=== PATIENT | male | born 1965 | race Hispanic/Latino ===

== ENCOUNTER 2017-07-09 10:39 | Inpatient (IN) | payer OTHER ==
[2017-07-09 11:08] LABS: #Eosinphils 0.3 thou/uL (0.0-0.7); #Lymphocytes 0.8 thou/uL (1.20-3.40); #Monocytes 0.5 thou/uL (0.11-0.59); #Neutrophils 7.5 thou/uL (1.40-6.50); %Basophils 0.5 % (0.0-1.0); %Eosinophils 2.8 % (0.0-10.0); %Lymphocytes 8.4 % (21.0-51.0); %Monocytes 5.2 % (0.0-10.0); %Neutrophils 83.1 % (42.0-75.0); Hemoglobin 11.7 g/dL (14.0-18.0); Mean Corpuscular HGB CONC 32.8 g/dL (32.0-36.0); Mean Corpuscular Hemoglobin 30.4 pg (27.0-31.0); Mean Corpuscular Volume 92.7 fl (80.0-94.0); Mean Platelet Volume 7.6 fL (7.4-10.4); Platelet Count 175 thou/uL (130-400); RBC Distribution Width 13.7 % (11.5-14.5); Red Blood Cell (RBC) Count 3.86 mill/uL (4.70-6.10); White Blood Cell (WBC) Count 9.1 thou/uL (4.8-10.8)
[2017-07-09] MEDS ORDERED: Ketorolac Tromethamine 30 MG/ML VIAL ONE (11:24)
[2017-07-09 11:39] LABS: ALT (SGPT) 16 U/L (8-55); AST (SGOT) 21 U/L (5-34); Albumin 3.5 g/dL (3.5-5.0); Alkaline Phosphatase 68 U/L (40-150); Anion Gap 17 mmol/L (10-20); BUN (Urea Nitrogen) 68 mg/dL (8.9-20.6); Bilirubin, Total 0.5 mg/dL (0.2-1.2); Calc. Creatinine Clearance 0 mL/min (70-130); Calcium 6.7 mg/dL (7.8-10.44); Carbon Dioxide 14 mmol/L (22-29); Chloride 114 mmol/L (98-107); Estimated GFR-MDRD 7; Globulin 3.6 g/dL (2.4-3.5); Glucose 181 mg/dL (70-105); Lipase 75 U/L (8-78); Potassium 5.4 mmol/L (3.5-5.1); Protein, Total 7.1 g/dL (6.0-8.3); Sodium 140 mmol/L (136-145)
--- NOTE | 2017-07-09 12:22 | RAD ---
FRONTAL RADIOGRAPH OF CHEST UPRIGHT AND SUPINE FRONTAL IMAGING OF ABDOMEN AND PELVIS: Date: 07/09/17 COMPARISON: None. HISTORY: Abdominal pain. FINDINGS: Frontal radiograph of chest demonstrates no pneumothorax, pleural fluid, focal consolidation, or alve olar edema. Heart and mediastinal contours are unremarkable. Upright imaging demonstrates no evidence for free intraperitoneal air. The bowel gas pattern appears nonobstructed. Upright imaging demonstrates no air fluid levels. Incompletely imaged postoperative hardware overlies the femoral head on the right. There may be lucency adjacent to the femoral head screw which could reflect loosening. IMPRESSION: Incidental findings as detailed above. No radiographic evidence of acute cardiopulmonary disease, florencia e intraperitoneal air, or small bowel obstruction. POS: [facility]
[2017-07-09 13:28] LABS: Bilirubin Negative (Negative); Blood, Urine Moderate (Negative); Clarity CLEAR (Clear); Glucose, Urine (Dipstick) 250 mg/dL (Negative); Leukocyte Negative (Negative); Nitrite Negative (Negative); Protein, Urine (Dipstick) 300 mg/dL (Neg-Trace); Specific Gravity, Urine 1.019 (1.002-1.036); Urobilinogen 0.2 mg/dL (0.2-1.0)
[2017-07-09 13:31] LABS: Bacteria/HPF None Seen HPF (None Seen); Hyaline Casts/LPF 0-3 HYALINE CAST LPF (0-3 Hyaline); Pathc Cast-AUWi Flag 0.27 (0-2.49); Squamous Epithelial 0-3 HPF (0-3)
[2017-07-09 13:35] LABS: Yeast-AUWi Flag 52.5 (0-25.0)
[2017-07-09 13:47] LABS: Yeast-All Forms None Seen HPF (None Seen)
[2017-07-09 13:48] LABS: Crystals/HPF RARE AMORPH URATES HPF (Negative)
[2017-07-09 15:50] LABS: Cardiac Risk 4.5 (Less than 4.5)
[2017-07-09] MEDS ORDERED: Sodium Chloride 0.9% 1,000 ML IV SCH (16:36)
[2017-07-09] MEDS ORDERED: Dextrose 50% Abboject 50 ML SYRINGE SLOW IVP PRN (16:36)
[2017-07-09] MEDS ORDERED: Labetalol HCl 100 MG/20 ML VIAL SLOW IVP PRN (16:36)
[2017-07-09] MEDS ORDERED: HumaLOG 300 UNITS/3 ML VIAL SC PRN (16:36)
[2017-07-09] MEDS ORDERED: Dextrose 5% in Water 1,000 ML IV PRN (16:36)
--- NOTE | 2017-07-09 16:56 | CT ---
ABDOMEN AND PELVIC CT SCAN WITHOUT IV CONTRAST: History: 51-year-old male with abdominal pain which began this morning radiating to right back. FINDINGS: There is an approximately 0.4 cm diameter nodular area on the highest most slice, image #1 in the rig ht middle lobe region, possibly a small pulmonary nodule. Bilateral pleural effusions, slightly great er on the right side. There is evidence for some mild to moderate right renal upper collecting system dilatation and some dilatation of the right ureter but no evidence for an overt opaque calculus. Thi s could be consistent with recent stone passage. There is some scattered linear fat stranding in the perirenal regions bilaterally, slightly greater on the right side. No evidence for renal calculus. No left sided obstruction. Normal appearing appendix. There is some minimally dilated small bowel wi th some air fluid levels, nonspecific. Possibilities include that of some mild ileus or enteritis or could possibly just be response to significant prior pain. There is a normal appearing appendix. Fat containing left inguinal hernia. Right hip nail. IMPRESSION: Dilatation of the right renal pelvis and ureter without evidence for a definitive calculus. This coul d conceivably represent residual dilatation from recently passed stone. Minimal dilatation of the sma ll bowel with some air and fluid levels, nonspecific. Minimal focal ileus or possibly enteritis or ve ry low grade partial small bowel obstruction or possibly even reaction to pain related to a recently passed stone are all considered possibilities. Normal appearing appendix. Small bilateral pleural eff usions, slightly larger on the right side. 0.4 cm diameter possible pulmonary nodule in the right mid dle lobe seen on the highest image, Image 1 on the axial scan. CODE LN POS: [facility]
[2017-07-09] MEDS: hydrALAZINE 20 MG/ML VIAL SLOW IVP PRN ×2 (17:23→22:10)
[2017-07-09] MEDS ORDERED: Amlodipine 10 MG TAB PO SCH (17:45)
[2017-07-09 17:58] LABS: ALT (SGPT) 14 U/L (8-55); AST (SGOT) 20 U/L (5-34); Albumin 3.2 g/dL (3.5-5.0); Alkaline Phosphatase 61 U/L (40-150); Anion Gap 19 mmol/L (10-20); BUN (Urea Nitrogen) 71 mg/dL (8.9-20.6); Bilirubin, Total 0.5 mg/dL (0.2-1.2); Calc. Creatinine Clearance 0 mL/min (70-130); Calcium 6.5 mg/dL (7.8-10.44); Carbon Dioxide 11 mmol/L (22-29); Chloride 116 mmol/L (98-107); Estimated GFR-MDRD 7; Globulin 3.2 g/dL (2.4-3.5); Glucose 82 mg/dL (70-105); Potassium 6.4 mmol/L (3.5-5.1); Protein, Total 6.4 g/dL (6.0-8.3); Sodium 140 mmol/L (136-145)
[2017-07-09 18:01] VITALS: BMI 37.1
[2017-07-09] MEDS: Heparin 5,000 UNITS/ML VIAL SC SCH ×2 (19:07→20:22)
[2017-07-09] MEDS: Sodium Chloride 0.9% 1,000 ML IV SCH (19:07)
[2017-07-09 19:39] LABS: Creatinine, Urine 62.31 mg/dL (63-166)
[2017-07-09] MEDS: Calcium Carbonate 500 MG ChewTAB PO SCH (20:21)
[2017-07-09] MEDS: Atorvastatin Calcium 40 MG TAB PO SCH (20:21)
[2017-07-09] MEDS: Sodium Bicarbonate Tab 325 MG TAB PO SCH (20:22)
--- NOTE | 2017-07-09 20:35 | CON ---
DATE OF CONSULTATION: 07/09/2017 RENAL MEDICINE HISTORY OF PRESENT ILLNESS: Mr. iSlva is a 51-year-old male, who came in with right-blake ed pain. A CT scan of the abdomen and pelvis was done, which showed some dilatation of the right tuan al pelvis and ureter without evidence of definitive calculus or obstruction. It is possible that, pe r radiologies, that he may have passed a stone recently. However, during the initial evaluation, he was noted to have elevated creatinine of 8.0 mg percent. We are being consulted for his acute kidney injury. REVIEW OF SYSTEMS: Positive for flank pain. No nausea, no vomiting, no diarrhea, no constipation, n o headache, no diplopia, no sore throat, no fever or chills. Appetite and energy level is fair. No hematochezia, no melena, no hematemesis. MEDICATIONS: Lipitor 40 mg tab at bedtime, vitamin D3 1000 international units every day, heparin 50 00 units subcu t.i.d., hydralazine 10 mg IV p.r.n., ketorolac discontinued. HOME MEDICATIONS: Include Toujeo 30 units subcutaneous q.a.m. PAST MEDICAL HISTORY: Type 2 diabetes mellitus, hyperlipidemia, hypertension. PAST SURGICAL HISTORY: Status post right femoral open reduction internal fixation status post left t ibia open reduction internal fixation status post left rotator cuff surgery. ALLERGIES: None. TRAUMA: Status post right femoral fracture status post left tibial fracture. IMMUNIZATIONS: Up to date. HOSPITALIZATIONS: Please see past medical history. SOCIAL HISTORY: The patient is , lives with his , he lives in [place], three children. Edu cation: 11th grade. 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 No alcohol intake. No history of smoki ng. No IV drug abuse. FAMILY HISTORY: No family history of ASRD. PHYSICAL EXAMINATION: VITAL SIGNS: Blood pressure is 203/106 with a heart rate of 62, respiratory rate 16, temperature 98. 3. GENERAL: Noted to be awake, alert, comfortable, not in distress. Patient is morbidly obese. SKIN: Adequate turgor. HEENT: He has pinkish conjunctivae, anicteric sclerae. NECK: No neck mass, no carotid bruits, no JVD. CHEST: No deformities. LUNGS: Clear breath sounds. No wheezing, no crackles. HEART: Normal sinus rhythm. No murmur, no gallops, no rubs. ABDOMEN: Globular, soft, nontender, no masses. EXTREMITIES: Trace edema, no deformities. NEUROLOGIC: Moving all extremities. No tremors or asterixis, no ataxia. LABORATORY: On 07/09/2017, white count 9.1, hemoglobin 11.7. Sodium 140, potassium 5.4, chloride 11 4, carbon dioxide 14, BUN 68, creatinine 8.24, AST 21, ALT 16, albumin is 3.5. Cholesterol is 131, t riglyceride 190, lipase 75. Hemoglobin A1c 5. Lactic acid 1.1. CT scan of the abdomen and pelvis showed dilatation, right renal pelvis and ureter without evidence o f definitive calculus. ASSESSMENT AND PLAN: 1. Acute kidney injury -- consider a possible hemodynamically mediated renal dysfunction. We will d o an acute obstruction, is possible with the stone passing out. The plan is to empirically/gently vo lume repleted. Normal saline at 100 mL per hour. 2. Metabolic acidosis. Start sodium bicarbonate 650 mg p.o. b.i.d. 3. Hypertension. Restart home medications of amlodipine 10 mg tab once daily, Coreg 25 mg tab t.i.d . 4. Type 2 diabetes mellitus. Continue current insulin regimen. There is no indication for any dialytic intervention.
[2017-07-09] MEDS ORDERED: WATER IVPB SCH (21:00)
[2017-07-09] MEDS ORDERED: DEXTROSE 10% IVPB SCH (21:00)
[2017-07-09] MEDS ORDERED: INSULIN REGULAR IVPB SCH (21:00)
[2017-07-09] MEDS ORDERED: Calcium Gluc 4.6 MEQ/10 ML (100 MG/ML) SLOW IVP SCH (21:15)
--- NOTE | 2017-07-09 21:53 | HP-2 ---
CODE STATUS: DNR. PRIMARY CARE PHYSICIAN: Tarun esparza. ATTENDING: Jordon Aguilar M.D. RESIDENT: Darryl Wright DO HISTORIAN: The patient. SPECIALISTS: Former patient of Dr. Guzman, Nephrology and patient of Dr. Geneva Omer, Endocrinology. CHIEF COMPLAINT: Abdominal pain. HISTORY OF PRESENT ILLNESS: The patient woke up earlier this morning, complained of right back and right lower quadrant abdominal pain with associated vomiting. The patient said he vomited 2 times. He said the pain was stabbing in nature and felt like he needed a BM. His most recent bowel movement had been the day prior and he has not noticed any blood or melenic type stools. Because the pain did not resolve, he presented to the emergency room and was given Toradol which resulted in some resolution of the pain. He has a prior history of CKD of unknown stage and has seen both Dr. Guzman and unknown insurance follow up rep at [facility] in the past; however, has seen neither in some time. He has never needed dialysis in the past. PAST MEDICAL HISTORY: Includes hypertension, diabetes type 2, CKD of unknown stage, low vitamin D and low calcium. PAST SURGICAL HISTORY: Includes a right femoral head ORIF. ALLERGIES: No known drug allergies. MEDICATIONS: 1. Aspirin 81 mg daily. 2. Toujeo 30 units subcu q.a.m. 3. Unclear as to the patient's antihypertensive medication. Possibilities include lisinopril/hydrochlorothiazide 20/25 mg daily, Coreg unknown dose, and amlodipine. FAMILY HISTORY: Paternal hypertension, maternal hypertension, ovarian cancer, and diabetes mellitus. SOCIAL HISTORY: Tobacco none. ETOH 1 drink per month. Drugs: None. REVIEW OF SYSTEMS: General: The patient denies fever, chills, changes in appetite, sleep, night sweats. HEENT: No vision changes, eye pain, nasal congestion. Respiratory: Denies any cough, congestion. Cardiovascular: Denies any chest pain or palpitations. Gastrointestinal: Admits to nausea and vomiting x2 with abdominal pain. Denies GI bleeding, constipation, or diarrhea. Genitourinary: Denies incontinence, dysuria. Skin: Denies any rashes or lesions. Musculoskeletal: Denies any pain or tenderness. Neurologic : Denies weakness or numbness. Psych: Denies anxiety or depression. PHYSICAL EXAMINATION: VITAL SIGNS: Blood pressure 167/77, pulse 59, respiratory rate 17, T-max 98.5, pulse oximetry 97% on room air. Current weight 104 kg. GENERAL: The patient is alert and oriented x3, in no apparent distress, morbidly obese. HEENT: PERRLA, EOMI. NECK: Supple without lymphadenopathy. CARDIAC: Regular rate and rhythm without murmur. RESPIRATORY: Normal effort, no retractions, clear to auscultation bilaterally. SKIN: Warm and dry without cyanosis or lesions. ABDOMEN: Soft with bowel sounds in all four quadrants. There is mild right lower quadrant tenderness. No masses or distention. EXTREMITIES: No clubbing or cyanosis. MUSCULOSKELETAL: Tone is normal. NEUROLOGIC: No focal neurological deficits. Cranial nerves II through XII grossly intact. PSYCHIATRIC: Appropriate. LABORATORY DATA: CBC: Hemoglobin 11.7, hematocrit 35.8, white count 9.1, platelets 175. CMP: Sodium 140, potassium 5.4, chloride 114, bicarbonate 14, BUN 68, creatinine 8.24, glucose 181, calcium 6.7, total serum protein 7.1, alkaline phos 3.5, total bilirubin 0.5, AST 21, ALT 16, alkaline phosphatase 68. GFR 7, lipase is 75. UA showed a specific gravity of 1.019, blood moderate , protein 300, leukocyte esterase negative, nitrites negative, ketones negative , glucose 250, rbc's 4-6, wbc's 4-6, bacteria none, rare urate crystals. IMAGING: Abdominal series shows no acute processes, possible right femoral head hardware loosening. ASSESSMENT AND PLAN: This is a 51-year-old male with acute kidney injury, questionable etiology. 1. Acute kidney injury on chronic kidney disease. Given the BUN and creatinine ratio, this is most likely intrinsic in nature. Consult Nephrology. Given intravenous fluids and maintenance dose at maintenance weight. We will monitor CMP later this afternoon and then in the morning. Possible causes include stone. Given the UA, we will get CT stone protocol, also given the white count in the urine culture. The patient's most recent known creatinine was 3.48 and this was 2 years ago. 2. Hypertension. The patient's daughter is going to get his actual medication that he takes so we will have better medication reconciliation. Add labetalol and hydralazine p.r.n. We will restart his home meds with the exception of MO inhibitor until his hyperkalemia resolves. 3. Hyperkalemia. Hold MO inhibitor as above. We will monitor CMP. At this point, does not need medical intervention as he is asymptomatic and he is mildly hyperkalemic. 4. Hypocalcemia. This is most likely secondary to chronic kidney disease. The patient is currently asymptomatic. We will give p.o. Tums and replace vitamin D that has been known to previously be deficient. Check a CMP as above. 5. Anemia. This is most likely chronic anemia secondary to chronic kidney disease. We will check CBC. 6. Non-anion gap metabolic acidemia, most likely secondary to acute kidney injury. We will monitor this level with CMP as above. 7. Asymptomatic bacterial cultures and treat for bacteria as indicated. 8. Diabetes. We will start his home long-acting dosing here using Lantus. Glucose checks a.c. and at bedtime, A1c now. Get a lipid panel and I will start a moderate intensity statin. SSI PRN DISPOSITION: Stable. Likely length of stay 3 days. Symptomatic medication will be provided. History and physical as well as management were discussed with Dr. Jordon Aguilar. DENNIS
[2017-07-10 01:28] LABS: Anion Gap 17 mmol/L (10-20); BUN (Urea Nitrogen) 69 mg/dL (8.9-20.6); Calc. Creatinine Clearance 15 mL/min (70-130); Calcium 6.7 mg/dL (7.8-10.44); Carbon Dioxide 12 mmol/L (22-29); Chloride 114 mmol/L (98-107); Estimated GFR-MDRD 7; Glucose 110 mg/dL (70-105); Potassium 4.5 mmol/L (3.5-5.1); Sodium 138 mmol/L (136-145)
[2017-07-10] MEDS: Sodium Chloride 0.9% 1,000 ML IV SCH ×3 (02:40→23:46)
[2017-07-10 04:51] LABS: #Basophils 0.1 thou/uL (0.0-0.2); #Eosinphils 0.3 thou/uL (0.0-0.7); #Lymphocytes 1.1 thou/uL (1.20-3.40); #Monocytes 0.7 thou/uL (0.11-0.59); #Neutrophils 5.6 thou/uL (1.40-6.50); %Basophils 0.7 % (0.0-1.0); %Eosinophils 3.3 % (0.0-10.0); %Lymphocytes 13.9 % (21.0-51.0); %Monocytes 8.8 % (0.0-10.0); %Neutrophils 73.3 % (42.0-75.0); Hemoglobin 9.5 g/dL (14.0-18.0); Mean Corpuscular HGB CONC 32.9 g/dL (32.0-36.0); Mean Corpuscular Hemoglobin 30.3 pg (27.0-31.0); Mean Platelet Volume 7.8 fL (7.4-10.4); Platelet Count 145 thou/uL (130-400); RBC Distribution Width 13.6 % (11.5-14.5); Red Blood Cell (RBC) Count 3.14 mill/uL (4.70-6.10); White Blood Cell (WBC) Count 7.7 thou/uL (4.8-10.8)
[2017-07-10 05:08] LABS: ALT (SGPT) 11 U/L (8-55); AST (SGOT) 14 U/L (5-34); Alkaline Phosphatase 52 U/L (40-150); Anion Gap 16 mmol/L (10-20); BUN (Urea Nitrogen) 70 mg/dL (8.9-20.6); Bilirubin, Total 0.5 mg/dL (0.2-1.2); Calc. Creatinine Clearance 14 mL/min (70-130); Calcium 6.7 mg/dL (7.8-10.44); Carbon Dioxide 15 mmol/L (22-29); Chloride 115 mmol/L (98-107); Estimated GFR-MDRD 6; Globulin 2.8 g/dL (2.4-3.5); Glucose 85 mg/dL (70-105); Potassium 4.9 mmol/L (3.5-5.1); Protein, Total 5.8 g/dL (6.0-8.3); Sodium 141 mmol/L (136-145)
--- NOTE | 2017-07-10 06:27 | HP ---
CHIEF COMPLAINT: Abdominal pain. HISTORY OF PRESENT ILLNESS: This is a 51-year-old male with past history of hypertension and diabetes who presents with a 1 day history of acute lower abdominal pain that he says is crampy in nature with associated 2 episodes of the emesis this morning. He did not have fever or chills, diarrhea or constipation. The pain kind of wrapped around his right side. REVIEW OF SYSTEMS: Denies any chest pain, shortness of breath, decreased urinary output, rash, numbness, tingling or weakness. All other systems reviewed and are negative. PAST MEDICAL HISTORY: Positive for hypertension and diabetes. PAST SURGICAL HISTORY: He has had 2 leg surgeries. SOCIAL HISTORY: No tobacco, ethanol or drug use. ALLERGIES: No known drug allergies. MEDICATIONS: Norvasc, Coreg and baby aspirin. FAMILY HISTORY: Noncontributory. PHYSICAL EXAMINATION: VITAL SIGNS: Include a temperature of 98.3, pulse 62, blood pressure 203/106, respiratory 16 and O2 sat 98%. GENERAL: No acute distress, resting comfortably in bed, watching the [employer] game with his family at bedside. HEENT: Eyes without icterus or injection. Pinna normal. Nares patent without discharge. Moist mucous membranes. NECK: Trachea midline and mobile. No obvious thyromegaly. CARDIOVASCULAR: Regular rate and rhythm without murmur, gallops or rubs. No peripheral edema. LUNGS: Clear to auscultation bilaterally without wheeze, rales, rhonchi or increased work of breathing. ABDOMEN: Bowel sounds positive. Nontender to palpation of my exam without guarding, rigidity or prominent CVA tenderness. No palpable organomegaly. GENITOURINARY: Deferred. MUSCULOSKELETAL: Without deformity, contracture or obvious joint swelling. NEUROLOGIC: Cranial nerves II-XII intact and symmetric. Motor 5/5 upper and lower extremities. Sensation intact to light touch throughout. PSYCHIATRIC: Alert and oriented x4. Mood and affect appropriate for current medical condition. LABORATORY DATA: Include a white count of 9.1, hemoglobin 11.2 with MCV of 92.7 and platelet count 175. Chemistry: Sodium 140, potassium 6.4, chloride 116, bicarbonate of 11, gap of 19, BUN 71, creatinine 8.28, calcium 6.5, total cholesterol 131, triglycerides 190, LDL 64, HDL 29 and lipase 75. Urine is 300 protein, 250 glucose, moderate blood and 4-6 wbc's. IMAGING DATA: CT abdomen and pelvis. Impression: There is dilation of the right renal pelvis and ureter without evidence for definitive calculus. This could conceivably represent residual dilatation, recent past stone, minimally dilatation of small bowel with some air fluid levels, nonspecific minimal focal ileus or possibly enteritis or very low-grade partial small-bowel obstruction or possibly even reaction of pain related to recent passed stone are considered possibilities. Normal appearing appendix. Small bilateral pleural effusions... ASSESSMENT AND PLAN: 1. Abdominal pain. This is secondary to presumed recently passed renal stone. We will give opiates p.r.n. for pain control, Zofran p.r.n. nausea and one for symptoms. No evidence of AAA, appendicitis, pancreatitis, or other acute intra-abdominal pathology. 2. Acute kidney injury on history of supposed chronic kidney disease. This is quite severe. We will consult Dr. Dunham for his recommendations. 3. Hyperkalemia. We will likely give calcium, sodium bicarbonate and D50 with insulin. Pending Dr. Dunham's recommendations. 4. Hypertensive emergency. We will restart home medications, Norvasc, Coreg, Lasix, hydralazine 10 mg IV p.r.n. as well as labetalol 20 mg IV. 5. Obesity. We will discuss diet, exercise. 6. Reported diabetes mellitus. We will send A1c and check a lipid panel. 7. Deep venous thrombosis prophylaxis with heparin. 8. Gastrointestinal prophylaxis with diet. MTDD
--- NOTE | 2017-07-10 06:56 | PRG ---
DATE OF SERVICE: 07/10/2017 SUBJECTIVE: Mr. Silva was seen yesterday for his acute kidney injury. He was started on IV volu me repletion. The CAT scan did suggest some mild renal dilatation which could be secondary to a rece ntly passed stone. We are currently hydrating this patient. He was also noted to have had a transie nt hyperkalemia with the potassium 6.4. He was given Kayexalate with improvement of potassium. He w as also initiated on sodium bicarbonate for his metabolic acidosis. This morning he has no new compl aints. He denies any chest pain, shortness of breath, nausea, vomiting or diarrhea. PHYSICAL EXAMINATION: VITAL SIGNS: Blood pressure is 154/68, heart rate 72, respiratory rate 20, temperature is 97.8, puls e ox 95%. GENERAL: Awake, supine, obese, comfortable, not in distress. SKIN: Adequate turgor. HEENT: He has slightly pale conjunctivae, anicteric sclerae. NECK: No neck mass, no carotid bruits, no JVD. CHEST: No deformities. LUNGS: Clear breath sounds. No wheezing, no crackles. HEART: Normal sinus rhythm. No murmur, no gallops or rubs. ABDOMEN: Globular, soft, nontender. No masses. EXTREMITIES: No edema. MEDICATIONS: 07/10/2017 - Reviewed. LABORATORY: 07/10/2017 - Sodium 141, potassium 4.9, chloride 115, carbon dioxide 15, BUN 70, creatin ine 8.75, glucose 85, calcium is 6.7. AST 14, ALT is 11, albumin 3. White count 7.7, hemoglobin 9.5 . ASSESSMENT AND PLAN: 1. Acute kidney injury -- I did review the urinalysis. There is proteinuria. It is possible that t his patient may have underlying chronic renal failure from diabetic nephropathy. Continue gentle vol ume hydration. The patient is not clinically uremic. I would still attempt to hydrate this patient. Hopefully, there will be some equilibration or even improvement of the renal function with gentle v olume repletion. 2. Anemia. Hemoglobin slightly lower at 9.5 from 11.7. This may be a reflection of some dilution p rocess from his current IV hydration. 3. Metabolic acidosis, started on sodium bicarbonate 650 mg p.o. t.i.d. 4. Hyperkalemia, resolved. 5.? Renal stone - suggested by dilated renal pelvis, but no evidence of any stone in the imaging. Ov erall, prognosis remains guarded. 6. Hypertension. Continue current blood pressure meds. We will recheck basic metabolic panel and CBC in a.m.
[2017-07-10] MEDS ORDERED: Amlodipine 10 MG TAB PO SCH (07:00)
[2017-07-10] MEDS: Carvedilol 25 MG TAB PO SCH ×2 (08:54→18:01)
[2017-07-10] MEDS: Calcium Carbonate 500 MG ChewTAB PO SCH ×2 (08:55→21:09)
[2017-07-10] MEDS: Heparin 5,000 UNITS/ML VIAL SC SCH ×3 (08:56→21:10)
[2017-07-10] MEDS: Sodium Bicarbonate Tab 325 MG TAB PO SCH ×3 (08:57→21:10)
[2017-07-10] MEDS: Acetaminophen 325 MG TAB PO PRN (08:58)
--- NOTE | 2017-07-10 08:58 | PDOC.FM ---
- Subjective Subjective: No acute events overnight. Pt states his abdominal/flank pain has improved. Denies CP, SOB, NVD. Does reports sensation of abdominal bloating/gas pains and constipation. Per pt, urinated twice last night. - Objective Vital Signs & Weight: Vital Signs (12 hours) Temp Pulse Resp BP BP Pulse Ox 07/10/17 06:51 73 136/65 07/10/17 02:45 97.8 F 72 20 154/68 H 95 07/09/17 23:30 98 F 82 20 145/71 H 95 07/09/17 22:10 68 214/102 H 07/09/17 21:30 98.4 F 71 20 201/95 H 96 Weight Weight 101.151 kg I&O: 07/09/17 07/10/17 07/11/17 06:59 06:59 06:59 Intake Total 1989 Output Total 250 Balance 1740 Result Diagrams: 07/10/17 04:32 07/10/17 04:32 <Reji Pollock - Last Filed: 07/10/17 08:56> - Objective Vital Signs & Weight: Vital Signs (12 hours) Temp Pulse Pulse Pulse Resp BP BP 07/10/17 12:12 68 71 161/77 H 07/10/17 12:10 98.1 F 66 18 07/10/17 08:56 99.0 F 73 16 07/10/17 06:51 73 136/65 07/10/17 02:45 97.8 F 72 20 BP BP Pulse Ox Pulse Ox 07/10/17 12:12 139/62 96 07/10/17 12:10 161/77 H 96 07/10/17 08:56 95 07/10/17 06:51 07/10/17 02:45 154/68 H 95 Weight Weight 101.151 kg I&O: 07/09/17 07/10/17 07/11/17 06:59 06:59 06:59 Intake Total 1989 Output Total 250 Balance 1740 Result Diagrams: 07/10/17 04:32 07/10/17 04:32 <Andreea Amezcua - Last Filed: 07/10/17 13:46> Phys Exam - Physical Examination Constitutional: NAD HEENT: PERRLA, moist MMs, sclera anicteric Respiratory: no wheezing, no rales, no rhonchi, clear to auscultation bilateral Cardiovascular: RRR, no significant murmur, no rub Gastrointestinal: soft, non-tender, no distention, positive bowel sounds Musculoskeletal: no edema, pulses present no CVA tenderness Neurological: non-focal, moves all 4 limbs Psychiatric: normal affect <Reji Pollock - Last Filed: 07/10/17 08:56> Dx/Plan (1) Acute kidney injury Code(s): N17.9 - ACUTE KIDNEY FAILURE, UNSPECIFIED Status: Acute (2) Obstructive uropathy Code(s): N13.9 - OBSTRUCTIVE AND REFLUX UROPATHY, UNSPECIFIED Status: Acute (3) Hypertension Code(s): I10 - ESSENTIAL (PRIMARY) HYPERTENSION Status: Acute (4) Diabetes Code(s): E11.9 - TYPE 2 DIABETES MELLITUS WITHOUT COMPLICATIONS Status: Acute (5) Metabolic acidosis Code(s): E87.2 - ACIDOSIS Status: Acute (6) Anemia Code(s): D64.9 - ANEMIA, UNSPECIFIED Status: Acute - Plan Plan: YANE on CKD: nephro consulted, appreciate recs pt is on gentle IV fluid hydration @ 100mls/hr per nephro recs monitor UOP will trend cbc and bmp in am 2/2 low Hgb and elevated creatinine hyperkalemia resolved rec home meds, continue home meds for HTN lantus for DM + ISS anemia possibly 2/2 dilution, will trend <Reji Pollock - Last Filed: 07/10/17 08:56> Attending Addendum - Attending Addendum I personally evaluated the patient and discussed the management with Dr. Pollock I agree with the History, Examination, Assessment and Plan documented above with any addition or exceptions noted below- Patient without complaints; denies any CP or SOB. Afebrile VSS. A/P: 1) YANE- appreciate nephrology assistance; continue gentle hydration and sodium bicarbonate, 2) DM- well controlled; continue current meds. 3) HTN- adjust meds as needed. <Andreea Amezcua - Last Filed: 07/10/17 13:46>
[2017-07-10] MEDS ORDERED: FLU VACC QS2017-18 36 mo. & older 0.5 ML SYRINGE IM ONE (09:00)
[2017-07-10] MEDS ORDERED: Epoetin (ESRD) 20,000 UNITS/ML SC SCH (09:00)
[2017-07-10] MEDS: Insulin Detemir 100 UNITS/ML 30 UNITS in Admixture Fee 1 EACH SC SCH (09:05)
--- NOTE | 2017-07-10 17:47 | EKG ---
Test Reason : Blood Pressure : / mmHG Vent. Rate : 069 BPM Atrial Rate : 069 BPM P-R Int : 200 ms QRS Dur : 092 ms QT Int : 456 ms P-R-T Axes : 048 088 031 degrees QTc Int : 488 ms Normal sinus rhythm Prolonged QT Abnormal ECG When compared with ECG of 04-JUL-2001 12:34, QT has lengthened Confirmed by ERIKA CARLISLE, SFabiola ([id number]) on 07/10/2017 5:47:07 PM Referred By: BALJINDER Confirmed By:DR. Esme JAMES MD
[2017-07-10] MEDS: Atorvastatin Calcium 40 MG TAB PO SCH (21:09)
[2017-07-11 05:23] LABS: #Eosinphils 0.3 thou/uL (0.0-0.7); #Lymphocytes 1.3 thou/uL (1.20-3.40); #Monocytes 0.8 thou/uL (0.11-0.59); #Neutrophils 4.9 thou/uL (1.40-6.50); %Basophils 0.6 % (0.0-1.0); %Eosinophils 3.6 % (0.0-10.0); %Lymphocytes 17.7 % (21.0-51.0); %Monocytes 10.6 % (0.0-10.0); %Neutrophils 67.5 % (42.0-75.0); Hemoglobin 9.3 g/dL (14.0-18.0); Mean Corpuscular Hemoglobin 30.4 pg (27.0-31.0); Mean Corpuscular Volume 92.2 fl (80.0-94.0); Platelet Count 135 thou/uL (130-400); RBC Distribution Width 13.5 % (11.5-14.5); Red Blood Cell (RBC) Count 3.05 mill/uL (4.70-6.10); White Blood Cell (WBC) Count 7.3 thou/uL (4.8-10.8)
[2017-07-11 05:40] LABS: Anion Gap 16 mmol/L (10-20); BUN (Urea Nitrogen) 68 mg/dL (8.9-20.6); Calc. Creatinine Clearance 14 mL/min (70-130); Calcium 6.8 mg/dL (7.8-10.44); Carbon Dioxide 15 mmol/L (22-29); Chloride 114 mmol/L (98-107); Estimated GFR-MDRD 6; Glucose 62 mg/dL (70-105); Potassium 5.3 mmol/L (3.5-5.1); Sodium 140 mmol/L (136-145)
[2017-07-11] MEDS ORDERED: Heparin 10,000 UNITS/ 10 ML VIAL ONE (09:00)
--- NOTE | 2017-07-11 09:02 | PDOC.FM ---
- Subjective Subjective: Pt reports he is feeling fine. Tolerating po, no nvdc, cp, sob, suprapubic pain. States he passed urine this am, unknown quantity. Spoke with pt regarding worsening kidney function and after speaking to nephrology this AM the plan will be to have a cath placed by surgery and begin dialysis. - Objective Vital Signs & Weight: Vital Signs (12 hours) Temp Pulse Resp BP Pulse Ox 07/11/17 06:04 70 16 175/81 H 07/11/17 04:00 98.0 F 69 18 183/89 H 96 07/11/17 00:00 99.0 F 72 20 163/77 H 94 L 07/10/17 21:05 98.9 F 68 16 165/85 H 94 L Weight Weight 106.005 kg I&O: 07/10/17 07/11/17 07/12/17 06:59 06:59 06:59 Intake Total 1989 3213 Output Total 250 1200 Balance 1740 2012 Result Diagrams: 07/11/17 04:54 07/11/17 04:54 <Reji Pollock - Last Filed: 07/11/17 08:58> - Objective Vital Signs & Weight: Vital Signs (12 hours) Temp Pulse Resp BP Pulse Ox 07/11/17 08:00 99.0 F 69 18 171/81 H 95 07/11/17 06:04 70 16 175/81 H 07/11/17 04:00 98.0 F 69 18 183/89 H 96 07/11/17 00:00 99.0 F 72 20 163/77 H 94 L Weight Weight 106.005 kg I&O: 07/10/17 07/11/17 07/12/17 06:59 06:59 06:59 Intake Total 1989 3213 Output Total 250 1200 Balance 1740 2012 Result Diagrams: 07/11/17 04:54 07/11/17 04:54 <Andreea Amezcua - Last Filed: 07/11/17 11:34> Phys Exam - Physical Examination Constitutional: NAD HEENT: PERRLA, moist MMs, sclera anicteric Respiratory: no wheezing, no rales, no rhonchi, clear to auscultation bilateral Cardiovascular: RRR, no significant murmur, no rub distant heart sounds Gastrointestinal: soft, non-tender, no distention, positive bowel sounds Musculoskeletal: pulses present, edema present (trace) Neurological: non-focal Lymphatic: no nodes Skin: no rash <Reji Pollock - Last Filed: 07/11/17 08:58> Dx/Plan (1) Acute kidney injury Code(s): N17.9 - ACUTE KIDNEY FAILURE, UNSPECIFIED Status: Acute (2) Obstructive uropathy Code(s): N13.9 - OBSTRUCTIVE AND REFLUX UROPATHY, UNSPECIFIED Status: Suspected (3) Hypertension Code(s): I10 - ESSENTIAL (PRIMARY) HYPERTENSION Status: Acute (4) Diabetes Code(s): E11.9 - TYPE 2 DIABETES MELLITUS WITHOUT COMPLICATIONS Status: Acute (5) Metabolic acidosis Code(s): E87.2 - ACIDOSIS Status: Resolved (6) Anemia Code(s): D64.9 - ANEMIA, UNSPECIFIED Status: Acute - Plan Plan: ARF: in context of worsening creatinine/renal function we will plan for dialysis per nephrology recommendations, pt to have cath placed by surgery who has been consulted Elevated bp: UOP has been minimal and pt has gained approx 5 kg in last day, likely 2/2 volume overload, plan for dialysis today, continue current BP meds, will monitor DM: continue current medications, glucose well controlled Met acidosis has resolved, AG is 11 Anemia: decrease in hgb, hct, wbc, and platelets, this is likely dilutional, repeat AM cbc, will trend <Reji Pollock - Last Filed: 07/11/17 08:58> Attending Addendum - Attending Addendum I personally evaluated the patient and discussed the management with Dr. Pollock I agree with the History, Examination, Assessment and Plan documented above with any addition or exceptions noted below- Patient without complaints. Denies any SOB, N/V, or abdominal pain. Afebrile VSS A/P: 1) Acute on chronic kidney disease- no improvement with hydration; plans as per nephrology to initiate HD. Plan for dialysis catheter placement today. 2) DM- well controlled; continue current meds. 3) HTN- not well controlled; plan to adjust meds as needed. <Andreea Amezcua - Last Filed: 07/11/17 11:34>
[2017-07-11] MEDS: Carvedilol 25 MG TAB PO SCH ×2 (09:07→16:24)
[2017-07-11] MEDS: Calcium Carbonate 500 MG ChewTAB PO SCH ×3 (09:08→22:48)
--- NOTE | 2017-07-11 09:08 | PRG ---
DATE OF SERVICE: 07/11/2017 SUBJECTIVE: Mr. Silva was admitted for an acute kidney injury on top of his chronic renal failur e. Initially we thought that he had some obstructive uropathy. CT scan did not show any stones, but some mildly dilated renal pelvis with no overt obstruction per se. He was also empirically given vo lume repletion. However, in the last 24-48 hours renal function has worsened. He denies any complai nts today. Denies any chest pain, shortness of breath. PHYSICAL EXAMINATION: VITAL SIGNS: Blood pressure is 175/81, heart rate 69, respiratory rate 18, temperature 98, pulse ox 96%. GENERAL: Awake, alert, comfortable, sitting, not in distress, obese. SKIN: Adequate turgor. HEENT: He has slightly pale conjunctivae, anicteric sclerae. NECK: No neck mass, no carotid bruits, no JVD. CHEST: No deformities. LUNGS: Clear breath sounds. No wheezing, no crackles. HEART: Normal sinus rhythm. No murmur, no gallops or rubs. ABDOMEN: Globular, soft, nontender. No masses. EXTREMITIES: No edema, no deformities. MEDICATIONS: 07/11/2017 - Reviewed. LABORATORY: 07/11/2017 - White count 7.2, hemoglobin 9.3. Sodium 140, potassium 5.3, chloride 114, carbon dioxide 15, BUN 68, creatinine 9.37, glucose 62, calcium 6.8, phosphorus is 6.0. ASSESSMENT AND PLAN: 1. Chronic renal failure, unimproved renal function. Consider initiating dialysis. I had a long di scussion with the patient about initiating dialysis, he has agreed with dialysis. We will plan to do one hour hemodialysis once the dialysis access is placed. 2. Anemia, currently on weekly Epogen. 3. Hyperphosphatemia/hypocalcemia - start PhosLo 667 mg 1 tab t.i.d. with meals. Overall, prognosis remains guarded.
[2017-07-11] MEDS: Sodium Bicarbonate Tab 325 MG TAB PO SCH ×4 (09:09→22:48)
[2017-07-11] MEDS: Heparin 5,000 UNITS/ML VIAL SC SCH ×3 (09:09→20:23)
[2017-07-11] MEDS: Insulin Detemir 100 UNITS/ML 30 UNITS in Admixture Fee 1 EACH SC SCH (09:10)
[2017-07-11] MEDS: Sodium Chloride 0.9% 1,000 ML IV SCH (09:48)
[2017-07-11] MEDS ORDERED: CEFAZOLIN/Water 2 GM/20 ML SYRINGE SLOW IVP SCH ×2 (10:00→15:49)
--- NOTE | 2017-07-11 11:06 | ULT ---
BILATERAL UPPER EXTREMITY VENOUS DUPLEX SONOGRAM FOR VEIN MAPPING: History: Renal disease. FINDINGS: Each internal jugular and subclavian vein were evaluated along with each axillary, brachial, cephalic and basilic vein. Good color and spectral doppler flow are present. Measurements are as follows: RIGHT UPPER EXTREMITY BRACHIAL ARTERY: 5 mm RADIAL ARTERY: 2 mm ULNAR ARTERY: 2 mm CEPHALIC VEIN Proximal Arm: 2 mm Mid Arm: 2 mm Distal Arm: 2 mm Antecubital Fossa: 2 mm Proximal Forearm: 2 mm Mid Forearm: 1 mm Distal Forearm: 1 mm BASILIC VEIN Proximal Arm: 4 mm Mid Arm: 4 mm Distal Arm: 4 mm Antecubital Fossa: 3 mm Proximal Forearm: 1 mm Mid Forearm: 2 mm Distal Forearm: 2 mm LEFT UPPER EXTREMITY BRACHIAL ARTERY: 4 mm RADIAL ARTERY: 3 mm ULNAR ARTERY: 2 mm CEPHALIC VEIN Proximal Arm: 3 mm Mid Arm: 3 mm Distal Arm: 3 mm Antecubital Fossa: 3 mm Proximal Forearm: 3 mm Mid Forearm: 2 mm Distal Forearm: 2 mm BASILIC VEIN Proximal Arm: 3 mm Mid Arm: 3 mm Distal Arm: 3 mm Antecubital Fossa: 2 mm Proximal Forearm: 2 mm Mid Forearm: 1 mm Distal Forearm: 2 mm IMPRESSION: Patent vascular structures within each upper extremity with measurements as detailed above. POS: [facility]
[2017-07-11] MEDS ORDERED: PROPOFOL 200 MG/20 ML VIAL ONE (11:13)
[2017-07-11] MEDS ORDERED: CEFAZOLIN/Water 2 GM/20 ML SYRINGE ONE (11:33)
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
[2017-07-11] MEDS ORDERED: Sodium Chloride 0.9% 20 ML ONE (12:35)
[2017-07-11] MEDS ORDERED: Bupivacaine/Epinephrine 0.25% 30 ML VIAL ONE (12:35)
[2017-07-11] MEDS ORDERED: Fentanyl 100 MCG/2 ML VIAL ONE (13:23)
[2017-07-11] MEDS ORDERED: Midazolam HCl 2 mg/2 ml Vial ONE (13:23)
[2017-07-11] MEDS ORDERED: Promethazine HCl 25 MG/ML VIAL SLOW IVP PRN (14:28)
[2017-07-11] MEDS ORDERED: Ondansetron HCl/PF 4 MG/2 ML Vial IVP PRN (14:28)
[2017-07-11] MEDS ORDERED: Promethazine HCl 25 MG/ML VIAL IM PRN (14:28)
[2017-07-11] MEDS: Calcium Acetate 667 MG CAP PO SCH ×2 (14:29→16:23)
--- NOTE | 2017-07-11 15:26 | RAD ---
CHEST 1 VIEW: HISTORY: Central line placement. COMPARISON: Abdomen radiograph 07/09/17. FINDINGS: Left IJ central venous catheter tip sits at the right atrium. The IJ dialysis catheter tip is at the right atrium. No pneumothorax. IMPRESSION: No pneumothorax post line placement. POS: [facility]
[2017-07-11] MEDS: Acetaminophen 325 MG TAB PO PRN (16:05)
[2017-07-11 17:59] LABS: HBSAg Index 0.18 S/CO (0-0.99); Hep B Core Total Ab Non-Reactive (NonReactive); Hep B Core Total Index 0.07 S/CO (0-0.79); Hep B Surf Ag Non-Reactive S/CO (NonReactive)
[2017-07-11 18:00] LABS: HBSAB Concentration 0.16 mIU/mL; Hep B Surf AB Non-Reactive (NonReactive); Hep C IgG Ab Non-Reactive (NonReactive); Hep C Index 0.24 S/CO (0-0.79)
--- NOTE | 2017-07-11 18:04 | OP ---
DATE OF OPERATION: 07/11/2017 PREOPERATIVE DIAGNOSES: End-stage renal disease, hyperkalemia, diabetes mellitus, hypertension, hype rtensive nephropathy, poor IV access. POSTOPERATIVE DIAGNOSES: End-stage renal disease, hyperkalemia, diabetes mellitus, hypertension, hyp ertensive nephropathy, poor IV access, prior history of right proximal forearm IV and despite chronic kidney disease. PROCEDURE PERFORMED: Right IJ cuffed tunneled angiodynamics precurved hemodialysis catheter placemen t and left IJ central line triple lumen catheter placement. Ultrasound fluoroscopy used for placemen t. SURGEON: Dr. David Maxwell. ANESTHESIA: Intravenous sedation and local 0.25% Marcaine with epinephrine, 30 mL, mixed with 2% Xyl ocaine, 10 mL PROCEDURE IN DETAIL: The patient was taken to the operating room where under intravenous sedation, n leonila and chest were prepared with ChloraPrep, draped in routine fashion. Local anesthetic infiltrated into skin and subcutaneous tissue about the operative site. Using ultrasound guidance, the right an d left internal jugular veins cannulated with a trocar catheter. J-wire was threaded. Trocar cathet er was removed. Skin incised and enlarged sharply on both sides and stab incision made in the right chest to the flank, hemodialysis catheter exit site. Using the tunneling device, the precurved angio dynamics cuffed tunnel hemodialysis catheter placed between the two incisions, placing the fabric cuf f beneath the skin exit site over the right chest and catheter secured with 2 interrupted sutures of 3-0 nylon and a Biopatch applied. Smaller and medium sized dilators placed over the J-wire into the internal jugular vein and removed. Dilator and pull-away sheath placed over the J-wire in superior v ying cava and dilator and J-wire removed. Catheter placed with a pull-away sheath. The pull-away she ath removed. Platysma approximated with 4-0 Monocryl, skin with subdermal 4-0 Monocryl and DermaGlue applied. Each port aspirated blood and flushed with saline solution and heparinized saline solution 1000 units heparin per mL indicated volume of the port. Seldinger technique used to place left IJ triple lumen catheter, securing it with 3-0 nylon suture an d each port aspirated blood and flushed with saline solution, and Biopatch sterile dressing applied. Final fluoroscopic images revealed both catheters to be in good position. The patient tolerated the procedure well without complications.
[2017-07-11] MEDS: Atorvastatin Calcium 40 MG TAB PO SCH ×2 (22:34→22:48)
--- NOTE | 2017-07-11 23:34 | ADD-PRG ---
ADDENDUM: 07/11/2017 I spoke with Mr. Silva regarding the planned procedure tomorrow. It was explained to him the options of hemodialysis and peritoneal dialysis. The patient is interested in pursuing peritoneal dialysis. I did explain to him that it would be also advantageous for him to have a backup AV fistula. He has agreed to have an AV fistula placed. I also explained to the patient as well to the , that they can decline any placement of AV fistula if he is not interested or even PD catheter. I did explain also that he eventually will need a renal transplant which he seems to be very open about it. They now wished to proceed to have the PD catheter, AV fistula placed tomorrow with Dr. Maxwell. DENNIS
[2017-07-12] MEDS: hydrALAZINE 20 MG/ML VIAL SLOW IVP PRN (00:58)
[2017-07-12] MEDS: Sodium Chloride 0.9% 1,000 ML IV SCH (01:03)
[2017-07-12] MEDS ORDERED: Lidocaine 1% w/Epinephrine 1:100K 20 ML VIAL FS SCH (02:45)
--- NOTE | 2017-07-12 03:07 | PDOC.EVN ---
Event Note - Event Note Event Note: Called for oozing from Left IJ CVC site. Upon ooze noted from insertion site. Skin cleaned. 4 cc lido 1% with epi used. Pursestring placed with 0 silk. Good resultant hemostasis immediately after. Dressing applied per nursing.
[2017-07-12] MEDS ORDERED: Ondansetron ODT 8 MG TAB SL PRN (03:19)
[2017-07-12] MEDS ORDERED: Ondansetron ODT 4 MG TAB PO PRN (03:20)
[2017-07-12 06:04] LABS: #Eosinphils 0.2 thou/uL (0.0-0.7); #Lymphocytes 0.8 thou/uL (1.20-3.40); #Monocytes 0.7 thou/uL (0.11-0.59); #Neutrophils 5.5 thou/uL (1.40-6.50); %Basophils 0.6 % (0.0-1.0); %Eosinophils 3.2 % (0.0-10.0); %Lymphocytes 10.6 % (21.0-51.0); %Monocytes 9.6 % (0.0-10.0); %Neutrophils 75.9 % (42.0-75.0); Hemoglobin 8.9 g/dL (14.0-18.0); Mean Corpuscular HGB CONC 34.2 g/dL (32.0-36.0); Mean Corpuscular Volume 90.7 fl (80.0-94.0); Mean Platelet Volume 8.1 fL (7.4-10.4); Platelet Count 145 thou/uL (130-400); RBC Distribution Width 13.5 % (11.5-14.5); Red Blood Cell (RBC) Count 2.87 mill/uL (4.70-6.10); White Blood Cell (WBC) Count 7.3 thou/uL (4.8-10.8)
[2017-07-12] MEDS: Carvedilol 25 MG TAB PO SCH ×2 (06:19→16:22)
[2017-07-12 06:34] LABS: Anion Gap 13 mmol/L (10-20); BUN (Urea Nitrogen) 56 mg/dL (8.9-20.6); Calc. Creatinine Clearance 16 mL/min (70-130); Calcium 7.2 mg/dL (7.8-10.44); Carbon Dioxide 19 mmol/L (22-29); Chloride 111 mmol/L (98-107); Estimated GFR-MDRD 7; Glucose 111 mg/dL (70-105); Potassium 4.3 mmol/L (3.5-5.1); Sodium 139 mmol/L (136-145)
[2017-07-12] MEDS ORDERED: CEFAZOLIN/Water 2 GM/20 ML SYRINGE ONE (07:47)
[2017-07-12] MEDS ORDERED: Fentanyl 100 MCG/2 ML VIAL ONE (08:58)
[2017-07-12] MEDS ORDERED: Midazolam HCl 2 mg/2 ml Vial ONE (08:58)
[2017-07-12] MEDS ORDERED: Protamine Sulfate 50 MG/5 ML VIAL ONE (09:02)
[2017-07-12] MEDS ORDERED: Bupivacaine/Epinephrine 0.25% 30 ML VIAL ONE ×2 (09:02→09:29)
[2017-07-12] MEDS ORDERED: Heparin 10,000 UNITS/1 ML VIAL ONE (09:02)
[2017-07-12] MEDS ORDERED: Heparin 5,000 UNITS/ML VIAL ONE (09:02)
[2017-07-12] MEDS ORDERED: SUGAMMADEX SODIUM 500 MG/5 ML VIAL ONE (11:13)
[2017-07-12] MEDS ORDERED: Amlodipine 10 MG TAB PO SCH (11:45)
[2017-07-12] MEDS: Calcium Acetate 667 MG CAP PO SCH ×2 (11:59→16:22)
[2017-07-12] MEDS: Calcium Carbonate 500 MG ChewTAB PO SCH ×2 (11:59→20:11)
[2017-07-12] MEDS: Heparin 5,000 UNITS/ML VIAL SC SCH ×3 (11:59→20:12)
[2017-07-12] MEDS: Insulin Detemir 100 UNITS/ML 30 UNITS in Admixture Fee 1 EACH SC SCH (12:00)
[2017-07-12] MEDS: Sodium Bicarbonate Tab 325 MG TAB PO SCH ×3 (12:00→21:30)
--- NOTE | 2017-07-12 13:34 | PDOC.FM ---
- Subjective Subjective: Patient seen in dialysis. Denies any complaints. Denies any pain, SOB. - Objective MAR Reviewed: Yes Vital Signs & Weight: Vital Signs (12 hours) Temp Pulse Resp BP BP BP Pulse Ox 07/12/17 12:55 97.8 F 56 L 18 114/60 07/12/17 07:20 98.8 F 73 16 171/77 H 96 07/12/17 04:00 98.6 F 76 20 148/70 H 95 07/12/17 01:46 76 16 174/84 H Weight Weight 104.734 kg I&O: 07/11/17 07/12/17 07/13/17 06:59 06:59 06:59 Intake Total 3213 646 Output Total 1200 1775 Balance 2012 Result Diagrams: 07/12/17 05:32 07/12/17 05:32 Phys Exam - Physical Examination Respiratory: no wheezing, no rales, no rhonchi, clear to auscultation bilateral Cardiovascular: RRR, no significant murmur Gastrointestinal: soft Musculoskeletal: edema present (1+ Lower extremity) Dx/Plan (1) Chronic kidney disease, stage 5 Code(s): N18.5 - CHRONIC KIDNEY DISEASE, STAGE 5 Status: Chronic (2) Hypertension Code(s): I10 - ESSENTIAL (PRIMARY) HYPERTENSION Status: Acute Qualifiers: Hypertension type: essential hypertension Qualified Code(s): I10 - Essential (primary) hypertension (3) Diabetes Code(s): E11.9 - TYPE 2 DIABETES MELLITUS WITHOUT COMPLICATIONS Status: Chronic Qualifiers: Diabetes mellitus type: type 2 Diabetes mellitus complication status: with kidney complications Diabetes mellitus complication detail: with chronic kidney disease Diabetes mellitus intermediate insulin use: with intermediate use Chronic kidney disease stage: on chronic dialysis Qualified Code(s): E11.22 - Type 2 diabetes mellitus with diabetic chronic kidney disease; N18.6 - End stage renal disease; N18.6 - End stage renal disease; N18.6 - End stage renal disease; N18.6 - End stage renal disease; Z79.4 - half-way (current) use of insulin; Z79.4 - terminal operations manager (current) use of insulin; Z79.4 - terminal operations manager (current ) use of insulin; Z79.4 - terminal operations manager (current) use of insulin; Z99.2 - Dependence on renal dialysis; Z99.2 - Dependence on renal dialysis; Z99.2 - Dependence on renal dialysis; Z99.2 - Dependence on renal dialysis (4) Anemia Code(s): D64.9 - ANEMIA, UNSPECIFIED Status: Acute Qualifiers: Anemia type: due to chronic kidney disease Chronic kidney disease stage: on chronic dialysis Qualified Code(s): N18.6 - End stage renal disease; D63.1 - Anemia in chronic kidney disease; D63.1 - Anemia in chronic kidney disease; Z99.2 - Dependence on renal dialysis; Z99.2 - Dependence on renal dialysis; Z99.2 - Dependence on renal dialysis; Z99.2 - Dependence on renal dialysis - Plan Plan: -Had Av fistula and PD catheter placed today by surgery. Currently in dialysis. Continue plans for dialysis as per nephrology. Case management for arrangements for outpatient dialysis. - BP labile; continue to monitor; may improve as fluid removed with dialysis - BG stable; continue current meds.
[2017-07-12] MEDS ORDERED: Heparin 10,000 UNITS/ 10 ML VIAL ONE ×2 (14:01→14:34)
--- NOTE | 2017-07-12 14:04 | OP ---
DATE OF OPERATION: 07/12/2017 PREOPERATIVE DIAGNOSES: End-stage renal disease, obesity, iatrogenic thrombosis right arm cephalic v ein forearm from IV access and blood draws. PROCEDURE: Laparoscopic peritoneal dialysis catheter, double cuffed pigtail, laparoscopic omentopexy (morbid obesity with abundant pericolonic fat and mesentery in the pelvis), left wrist Cassie fistul a. Good quality with radial artery without arteriosclerotic disease, a 3.5 mm coronary dilator parag bosch SURGEON: Dr. David Maxwell ANESTHESIA: General. Local 0.25% Marcaine with epinephrine, 30 mL, mixed with 2% Xylocaine, 10 mL. PROCEDURE: The patient was taken to the operating room where under general anesthesia, abdomen and l eft arm were clipped of hair, prepared with ChloraPrep, draped in routine fashion. Local anesthetic infiltrated about the operative site and the skin and subcutaneous tissues of all incisions. Bilater al subcostal incisions made and pneumoperitoneum to 15 mmHg obtained with the Veress needle, replacin g it with a 5 port. Video laparoscope inserted. Contralateral 5 mm port placed under laparoscopic v isualization. Omentum was abundant and reached into the pelvis. Left paraumbilical and counterincis ion was made with an 11 blade and a 5 port placed to facilitate omentopexy, laparoscopic omentopexy p erformed with 0 Vicryl suture placed with a GraNee needle placing the omentum into the upper abdomen with the transabdominal fixation suture. Once this was completed, the 5 mm port from the counterinci leander was removed and an 8 mm port placed through this incision directed caudally in the subcutaneous tissue, directed into the rectus sheath, visualized laparoscopically, penetrating the abdominal wall and fascia, peritoneum inferiorly/caudally. A cuffed pigtail peritoneal dialysis catheter passed thr ough this port and internal cuff placed in the rectus sheath and the port removed. The planned exit site left lower quadrant, slightly more dependent and caudal and lateral to the counterincision was m essie and using Eli dissector passed through this exit site incision to the counterincision. The p eritoneal dialysis catheter was grasped and pulled out this incision, placed an external cuff beneath the skin. Counterincision was closed by approximating subcutaneous tissues with 4-0 Monocryl, skin with subdermal 4-0 Monocryl. Irrigation connecting device placed on the peritoneal dialysis catheter and it flushed with heparinized saline solution 1000 units heparin per mL, 10 mL. A cap applied. Biopatch and sterile dressings applied. Pneumoperitoneum evacuated. All instruments removed and all skin incisions approximated with interrupted subdermal 4-0 Monocryl and DermaGlue applied. The tiffany ent tolerated the procedure well. Incision was made between the radial and cephalic vein longitudinally at the wrist and carried down t hrough the skin and subcutaneous tissue. Radial artery was of good quality. Cephalic vein was of go od quality. Cephalic vein dissected free and ligated on the hand side with a 3-0 silk tie and divide d and spatulated and interrogated with coronary dilators. I initially divided branch between 4-0 lety k ties and clips, passing coronary dilators from a 2 mm to a 3.5 mm coronary dilator, to their casa l length without obstruction. It was then flushed with heparinized saline solution. The patient giv en 6000 units of heparin intravenously by Anesthesia. Radial artery dissected free, clamped proximal ly and distally and longitudinal arteriotomy made for a 2.5 to 3 cm anastomosis between the side radi al artery and end cephalic vein spatulated cephalic vein accordingly. Continuous suture of 6-0 Prole ne used for the anastomosis. After completion of the anastomosis, vascular clamp was released. Ther e was excellent arterial flow with good Doppler signal throughout cephalic vein fistula. Good hemost asis was noted. The patient given 25 mg intravenously by Anesthesia. Subcutaneous tissues approxima bon with 3-0 Monocryl, skin with subdermal 4-0 Monocryl and DermaGlue applied.
[2017-07-12] MEDS ORDERED: Succinylcholine Chloride 20 MG/ML 10 ml SYRINGE FS ONE (14:34)
[2017-07-12] MEDS ORDERED: Naloxone HCl 0.4 mg/ml Vial ONE (14:34)
[2017-07-12] MEDS ORDERED: Lidocaine 1% PF 5 ML VIAL ONE (14:34)
[2017-07-12] MEDS ORDERED: PROPOFOL 200 MG/20 ML VIAL ONE (14:34)
[2017-07-12] MEDS ORDERED: Glycopyrrolate 0.2 MG/ML 5 ML SYRINGE ONE (14:34)
[2017-07-12] MEDS ORDERED: PHENYLEPHRINE-NS 100 MCG/ML 10 ML SYRINGE ONE (14:34)
[2017-07-12] MEDS ORDERED: Tuberculin PPD 0.1 ML VIAL I-DERMAL SCH (18:00)
--- NOTE | 2017-07-12 18:56 | PRG ---
DATE OF SERVICE: 07/12/2017 SUBJCTIVE: Mr. Silva is a 51-year-old male, who was admitted for acute kidney injury. However renal function on review probably is that he most likely has ESRD. His renal function remain ed improving with slight volume repletion. He is now had a PD catheter, AV fistula placed. We have initiated dialysis. He underwent 2-hour dialysis today without any difficulty. He has no new compla ints. He has no chest pain, shortness of breath. We have placed him on Hep-Lock. OBJECTIVE: VITAL SIGNS: Blood pressure is 173/81, heart rate 63, respiratory rate 18, temperature 97.5, pulse o x 96%. GENERAL: Noted to be awake, supine, comfortable, not in distress, obese. SKIN: Adequate turgor. HEENT: Slightly pale conjunctivae, anicteric sclerae. NECK: No neck mass, no carotid bruits. No JVD. CHEST: No deformities. LUNGS: Clear breath sounds. No wheezing, no crackles. HEART: Normal sinus rhythm. No murmur, no gallops or rubs. ABDOMEN: Globular, soft, nontender, no masses. Positive for PD catheter. EXTREMITIES: Positive for edema, but no deformities MEDICATIONS of 2018 was reviewed. LABORATORY DATA: 07/12/2017, White count is 7.3, hemoglobin 8.9. Sodium 139, potassium 4.3, chlorid e 111, carbon dioxide 19, BUN 56, creatinine 8.04, glucose 111, calcium 7.2. ASSESSMENT AND PLAN: 2. Chronic renal failure/end-stage renal disease - Patient underwent a 2-hour dialysis today. He to lerated said treatment. The plan is to do a 3-hour dialysis tomorrow. 3. Anemia on weekly Epogen. 4. Hypocalcemia/hyperphosphatemia - Patient started on PhosLo and also on calcium supplementation. Calcium is much improved. Overall, the patient is doing well, awaiting dialysis placement.
[2017-07-12] MEDS: Acetaminophen 325 MG TAB PO PRN (20:10)
[2017-07-12] MEDS ORDERED: Carvedilol 25 MG TAB PO SCH (21:00)
[2017-07-12] MEDS ORDERED: Acetaminophen/Codeine 30-300mg Tablet PO PRN (21:24)
[2017-07-12] MEDS: Atorvastatin Calcium 40 MG TAB PO SCH (21:31)
--- NOTE | 2017-07-13 08:42 | PRG ---
DATE OF SERVICE: 07/13/2017 SERVICE: Renal Medicine. SUBJECTIVE: Mr. Silva is a 51-year-old male who was initiated dialysis due to uremic si gns and symptoms. He was also in mild volume overload. He had a PD catheter, AV fistula as well as a cuffed dialysis catheter placed. This is on the third day of his dialysis. My plan is to do a 3-h our hemodialysis with fluid removal with this patient as tolerated. No other complaints. No chest p ain, no shortness of breath. He has some postop abdominal pain, but this is tolerable. OBJECTIVE: VITAL SIGNS: Blood pressure 131/62, heart rate 71, respiratory rate 20, temperature 98.2, pulse ox 9 4%. GENERAL: Awake, alert, supine, comfortable. SKIN: Adequate turgor. HEENT: He has slightly pale conjunctivae, anicteric sclerae. NECK: No neck mass, no carotid bruits, no JVD. CHEST: No deformities. LUNGS: Clear breath sounds. No wheezing or crackles. HEART: Normal sinus rhythm. No murmurs, gallops or rubs. ABDOMEN: Globular, soft, nontender. Positive for PD catheter. EXTREMITIES: No edema. Positive left wrist AV fistula, positive for bruit. MEDICATIONS: Of 07/13/2017 was reviewed. LABORATORY DATA: Of 07/12/2017, white count 7.2, hemoglobin 8.9. Sodium 139, potassium 4.3, chlorid e 111, carbon dioxide 19, BUN 56, creatinine 8.04, calcium 7.2. ASSESSMENT AND PLAN: 1. Chronic renal failure/end-stage renal disease - hemodialysis today for 3 hours. Fluid removal on ly as tolerated. 2. Anemia - continuing weekly Epogen. 3. Hypocalcemia. Currently, patient is on PhosLo as well on calcium tablets. 4. Hyperphosphatemia. The patient has been started on phosphate binders. Awaiting placement. Jacob e with overall management.
[2017-07-13] MEDS: Amlodipine 10 MG TAB PO SCH (08:47)
[2017-07-13] MEDS: Carvedilol 25 MG TAB PO SCH ×2 (08:47→17:51)
[2017-07-13] MEDS: Calcium Acetate 667 MG CAP PO SCH ×3 (08:47→17:51)
[2017-07-13] MEDS: Insulin Detemir 100 UNITS/ML 30 UNITS in Admixture Fee 1 EACH SC SCH (08:48)
[2017-07-13] MEDS: Calcium Carbonate 500 MG ChewTAB PO SCH ×2 (08:48→20:43)
[2017-07-13] MEDS: Heparin 5,000 UNITS/ML VIAL SC SCH ×3 (08:48→20:44)
[2017-07-13] MEDS: Sodium Bicarbonate Tab 325 MG TAB PO SCH ×3 (09:00→20:54)
[2017-07-13 09:59] LABS: #Basophils 0.1 thou/uL (0.0-0.2); #Eosinphils 0.3 thou/uL (0.0-0.7); #Lymphocytes 0.9 thou/uL (1.20-3.40); #Monocytes 0.6 thou/uL (0.11-0.59); #Neutrophils 4.7 thou/uL (1.40-6.50); %Eosinophils 4.7 % (0.0-10.0); %Monocytes 9.7 % (0.0-10.0); %Neutrophils 71.6 % (42.0-75.0); Hemoglobin 8.4 g/dL (14.0-18.0); Mean Corpuscular HGB CONC 32.2 g/dL (32.0-36.0); Mean Corpuscular Hemoglobin 29.3 pg (27.0-31.0); Mean Corpuscular Volume 91.1 fl (80.0-94.0); Platelet Count 149 thou/uL (130-400); RBC Distribution Width 13.6 % (11.5-14.5); Red Blood Cell (RBC) Count 2.86 mill/uL (4.70-6.10); White Blood Cell (WBC) Count 6.5 thou/uL (4.8-10.8)
--- NOTE | 2017-07-13 10:13 | PDOC.FM ---
Addendum entered and electronically signed by Reji Pollock DO 07/13/17 10: 18: Continue coreg and amlodipine for HTN. Procrit for anemia Original Note: - Subjective Subjective: No acute events overnight. Pt tolerated pd placement well. Minor pain surrounding pd placement site, w/o evidence of infection. HD scheduled per nephro. Overall pt doing well and no complaints today. Passing flatus since pd cath placement but no BM. Denies cp, sob, NVDC. - Objective Vital Signs & Weight: Vital Signs (12 hours) Temp Pulse Resp BP Pulse Ox 07/13/17 08:47 71 07/13/17 04:00 98.2 F 71 20 131/62 94 L 07/13/17 00:00 98.9 F 76 20 134/61 91 L Weight Weight 103.561 kg I&O: 07/12/17 07/13/17 07/14/17 06:59 06:59 06:59 Intake Total 646 340 Output Total 1775 2495 Balance -1129 -2155 Result Diagrams: 07/13/17 09:39 07/12/17 05:32 <Reji Pollock - Last Filed: 07/13/17 10:17> - Objective Vital Signs & Weight: Vital Signs (12 hours) Temp Pulse Resp BP Pulse Ox 07/13/17 08:47 71 07/13/17 04:00 98.2 F 71 20 131/62 94 L Weight Weight 103.561 kg I&O: 07/12/17 07/13/17 07/14/17 06:59 06:59 06:59 Intake Total 646 340 Output Total 1775 2495 Balance -1129 -2154 Result Diagrams: 07/13/17 09:39 07/13/17 09:39 <Andreea Amezcua - Last Filed: 07/13/17 12:08> Phys Exam - Physical Examination Constitutional: NAD HEENT: PERRLA, sclera anicteric Neck: no nodes, no JVD Respiratory: no wheezing, no rales, no rhonchi, clear to auscultation bilateral Cardiovascular: RRR, no significant murmur, no rub Gastrointestinal: soft, no distention, positive bowel sounds ttp surrounding PD cath site Musculoskeletal: no edema, pulses present Neurological: non-focal, normal sensation, moves all 4 limbs Psychiatric: normal affect Skin: no rash <Reji Pollock - Last Filed: 07/13/17 10:17> Dx/Plan (1) ESRD (end stage renal disease) on dialysis Code(s): N18.6 - END STAGE RENAL DISEASE; Z99.2 - DEPENDENCE ON RENAL DIALYSIS Status: Acute (2) Hypertension Code(s): I10 - ESSENTIAL (PRIMARY) HYPERTENSION Status: Chronic QualifierTitle: Hypertension type: essential hypertension Qualified Code( s): I10 - Essential (primary) hypertension (3) Diabetes Code(s): E11.9 - TYPE 2 DIABETES MELLITUS WITHOUT COMPLICATIONS Status: Chronic QualifierTitle: Diabetes mellitus type: type 2 Diabetes mellitus complication status: with kidney complications Diabetes mellitus complication detail: with chronic kidney disease Diabetes mellitus long-term insulin use: with terminal worker use Chronic kidney disease stage: on chronic dialysis Qualified Code(s): E11.22 - Type 2 diabetes mellitus with diabetic chronic kidney disease; N18.6 - End stage renal disease; Z99.2 - Dependence on renal dialysis; Z99.2 - Dependence on renal dialysis; Z99.2 - Dependence on renal dialysis; N18.6 - End stage renal disease; N18.6 - End stage renal disease; N18.6 - End stage renal disease; Z79.4 - retirement (current) use of insulin; Z79.4 - superintendent container terminal (current) use of insulin; Z79.4 - retirement (current) use of insulin; Z79.4 - superintendent container terminal (current) use of insulin; Z99.2 - Dependence on renal dialysis (4) Metabolic acidosis Code(s): E87.2 - ACIDOSIS Status: Resolved (5) Anemia Code(s): D64.9 - ANEMIA, UNSPECIFIED Status: Acute QualifierTitle: Anemia type: due to chronic kidney disease Chronic kidney disease stage: on chronic dialysis Qualified Code(s): N18.6 - End stage renal disease; D63.1 - Anemia in chronic kidney disease; D63.1 - Anemia in chronic kidney disease; Z99.2 - Dependence on renal dialysis; Z99.2 - Dependence on renal dialysis; Z99.2 - Dependence on renal dialysis; Z99.2 - Dependence on renal dialysis - Plan Plan: ESRD on dialysis awaiting dialysis placement CM consulted and working on placement for dialysis Nephro consulted, appreciate recs anemia on epogen weekly HTN, improved, continue amlodipine and hctz <Reji Pollock - Last Filed: 07/13/17 10:17> (1) Chronic kidney disease, stage 5 Code(s): N18.5 - CHRONIC KIDNEY DISEASE, STAGE 5 Status: Chronic (2) Hypertension Code(s): I10 - ESSENTIAL (PRIMARY) HYPERTENSION Status: Chronic Qualifiers: Hypertension type: essential hypertension Qualified Code(s): I10 - Essential (primary) hypertension (3) Diabetes Code(s): E11.9 - TYPE 2 DIABETES MELLITUS WITHOUT COMPLICATIONS Status: Chronic Qualifiers: Diabetes mellitus type: type 2 Diabetes mellitus complication status: with kidney complications Diabetes mellitus complication detail: with chronic kidney disease Diabetes mellitus terminal worker insulin use: with long-term use Chronic kidney disease stage: on chronic dialysis Qualified Code(s): E11.22 - Type 2 diabetes mellitus with diabetic chronic kidney disease; N18.6 - End stage renal disease; Z99.2 - Dependence on renal dialysis; Z99.2 - Dependence on renal dialysis; Z99.2 - Dependence on renal dialysis; N18.6 - End stage renal disease; N18.6 - End stage renal disease; N18.6 - End stage renal disease ; Z79.4 - superintendent container terminal (current) use of insulin; Z79.4 - superintendent container terminal (current) use of insulin; Z79.4 - superintendent container terminal (current) use of insulin; Z79.4 - superintendent container terminal ( current) use of insulin; Z99.2 - Dependence on renal dialysis (4) Anemia Code(s): D64.9 - ANEMIA, UNSPECIFIED Status: Acute Qualifiers: Anemia type: due to chronic kidney disease Chronic kidney disease stage: on chronic dialysis Qualified Code(s): N18.6 - End stage renal disease; D63.1 - Anemia in chronic kidney disease; D63.1 - Anemia in chronic kidney disease; Z99.2 - Dependence on renal dialysis; Z99.2 - Dependence on renal dialysis; Z99.2 - Dependence on renal dialysis; Z99.2 - Dependence on renal dialysis <Andreea Amezcua - Last Filed: 07/13/17 12:08> Attending Addendum - Attending Addendum I personally evaluated the patient and discussed the management with Dr. Pollock I agree with the History, Examination, Assessment and Plan documented above with any addition or exceptions noted below- Patient seen in dialysis. Denies any complaints. Mild soreness/pain in abdomen from PD catheter. Afebrile VSS A/P : 1) CKD stage 5- cotninue HD as per nephrology. Case management working on outpatient arragements. 2) HTN- BP improved with dialysis; continue current meds and adjust as needed. 3) DM- BG stable; continue to monitor. <Andreea Amezcua - Last Filed: 07/13/17 12:08>
[2017-07-13 10:21] LABS: Anion Gap 11 mmol/L (10-20); BUN (Urea Nitrogen) 37 mg/dL (8.9-20.6); Calc. Creatinine Clearance 23 mL/min (70-130); Calcium 7.3 mg/dL (7.8-10.44); Carbon Dioxide 26 mmol/L (22-29); Chloride 103 mmol/L (98-107); Estimated GFR-MDRD 11; Glucose 249 mg/dL (70-105); Potassium 3.5 mmol/L (3.5-5.1); Sodium 136 mmol/L (136-145)
--- NOTE | 2017-07-13 18:09 | PRG ---
DATE OF SERVICE: 07/13/2017 SUBJECTIVE: Mr. Silva is doing well today. His hemodialysis catheter is working well. OBJECTIVE: ABDOMEN: Soft, nontender. Dressing over his peritoneal dialysis left lower quadrant of abdomen is c lean and dry. EXTREMITIES: Fistula left wrist is with good thrill and bruit. Surgical wound looks good. ASSESSMENT AND PLAN: The patient exercises left arm continually throughout the day, should do squeez e stress ball, use the hand exercise spring, do forearm curls, uses arm for daily activities without restrictions. Preperitoneal dialysis catheter dressing left lower quadrant abdomen should be left in place. He should visit the peritoneal dialysis nurse in 3-6 days postoperatively and I have consult ed the registered nurse practitioner to arrange this visit as an outpatient next week. The peritoneal dialysis nurse wi ll change his abdominal dressing and flush his peritoneal dialysis catheter and begin teaching him pe ritoneal dialysis. The patient should follow up with me in 3-4 weeks. He should avoid IV access and blood draws in his antecubital areas in the right arm and also avoid blood draws left arm. I will s ee him as needed this hospitalization. Please call if necessary. The patient is ready for discharge anytime from surgical standpoint.
[2017-07-13] MEDS: Atorvastatin Calcium 40 MG TAB PO SCH (20:44)
[2017-07-13] MEDS: Acetaminophen 325 MG TAB PO PRN (20:44)
--- NOTE | 2017-07-14 07:31 | PRG ---
DATE OF SERVICE: 07/14/2017 SUBJECTIVE: Mr. Silva is a 51-year-old male who was initiated on dialysis due to signs and symptoms. In the interim, he had a PD catheter cuffed hemodialysis catheter placed as well as an AV fistula. He is doing well with the dialysis, he is clinically improving. No new complaints toda y, no chest pain or no shortness of breath. PHYSICAL EXAMINATION: VITAL SIGNS: Blood pressure 148/69, heart rate 66, respiratory rate 14, temperature 97.8, pulse ox 9 2%. GENERAL: Noted to be awake, alert, comfortable, not in distress. SKIN: Adequate turgor. HEENT: He has slightly pale conjunctivae, anicteric sclerae. NECK: No neck mass, no carotid bruits, no JVD. CHEST: No deformities. LUNGS: Decreased breath sounds, but no wheezing, no crackles. HEART: Normal sinus rhythm. No murmur, no gallops or rubs. ABDOMEN: Globular, soft, nontender, no masses. EXTREMITIES: Trace edema. MEDICATIONS: 07/14/2017 - Reviewed. LABORATORY: 07/13/2017 - White count 6.5, hemoglobin 8.4, sodium 136, potassium 3.5, chloride 103, c arbon dioxide 26, BUN 37, creatinine 5.68, glucose 249, calcium 7.3. ASSESSMENT AND PLAN: 1. End-stage renal disease, stable. Continuing current hemodialysis regimen. Fluid removal only as tolerated. I am currently, at the bedside supervising his dialysis. He has been tolerating his las t dialysis in the last few days. 2. Anemia - currently on weekly Epogen - 7500 units daily. 3. Hyperphosphatemia, calcium acetate has been started. 4. Hypocalcemia, clinically improving. Currently on calcium acetate at 600 mg 2 tabs t.i.d. with me als. We are awaiting outpatient dialysis placement.
[2017-07-14] MEDS ORDERED: Heparin 10,000 UNITS/ 10 ML VIAL ONE ×2 (09:47→13:59)
--- NOTE | 2017-07-14 10:44 | PDOC.FM ---
- Subjective Subjective: No acute events overnight. Pt has bed at dialysis center, awaiting scheduling. Otherwise stable for DC pending nephro recs. Only complaint is constipation. - Objective Vital Signs & Weight: Vital Signs (12 hours) Temp Pulse Resp BP Pulse Ox 07/14/17 04:00 97.8 F 66 14 148/69 H 92 L 07/14/17 00:00 98.4 F 71 14 170/73 H 93 L Weight Weight 115.666 kg I&O: 07/13/17 07/14/17 07/15/17 06:59 06:59 06:59 Intake Total 340 1440 Output Total 2495 2000 Balance -2155 -560 Result Diagrams: 07/13/17 09:39 07/13/17 09:39 <Reji Pollock - Last Filed: 07/14/17 10:42> - Objective Vital Signs & Weight: Weight Weight 115.666 kg Result Diagrams: 07/13/17 09:39 07/13/17 09:39 <Andreea Amezcua - Last Filed: 07/17/17 14:56> Phys Exam - Physical Examination Constitutional: NAD HEENT: PERRLA, sclera anicteric Neck: no JVD Respiratory: no wheezing, no rales, no rhonchi, clear to auscultation bilateral Cardiovascular: RRR, no significant murmur, no rub Gastrointestinal: soft, non-tender, no distention, positive bowel sounds PD catheter in place Musculoskeletal: no edema, pulses present Neurological: non-focal, moves all 4 limbs Skin: no rash <Reji Pollock - Last Filed: 07/14/17 10:42> Dx/Plan (1) ESRD (end stage renal disease) on dialysis Code(s): N18.6 - END STAGE RENAL DISEASE; Z99.2 - DEPENDENCE ON RENAL DIALYSIS Status: Acute (2) Hypertension Code(s): I10 - ESSENTIAL (PRIMARY) HYPERTENSION Status: Chronic QualifierTitle: Hypertension type: essential hypertension Qualified Code( s): I10 - Essential (primary) hypertension (3) Diabetes Code(s): E11.9 - TYPE 2 DIABETES MELLITUS WITHOUT COMPLICATIONS Status: Chronic QualifierTitle: Diabetes mellitus type: type 2 Diabetes mellitus complication status: with kidney complications Diabetes mellitus complication detail: with chronic kidney disease Diabetes mellitus intermodal customer service insulin use: with intermodal customer service use Chronic kidney disease stage: on chronic dialysis Qualified Code(s): E11.22 - Type 2 diabetes mellitus with diabetic chronic kidney disease; N18.6 - End stage renal disease; Z99.2 - Dependence on renal dialysis; Z99.2 - Dependence on renal dialysis; Z99.2 - Dependence on renal dialysis; N18.6 - End stage renal disease; N18.6 - End stage renal disease; N18.6 - End stage renal disease; Z79.4 - [facility] (current) use of insulin; Z79.4 - [facility] (current) use of insulin; Z79.4 - [facility] (current) use of insulin; Z79.4 - terminal superintendent (current) use of insulin; Z99.2 - Dependence on renal dialysis (4) Metabolic acidosis Code(s): E87.2 - ACIDOSIS Status: Resolved (5) Anemia Code(s): D64.9 - ANEMIA, UNSPECIFIED Status: Acute QualifierTitle: Anemia type: due to chronic kidney disease Chronic kidney disease stage: on chronic dialysis Qualified Code(s): N18.6 - End stage renal disease; D63.1 - Anemia in chronic kidney disease; D63.1 - Anemia in chronic kidney disease; Z99.2 - Dependence on renal dialysis; Z99.2 - Dependence on renal dialysis; Z99.2 - Dependence on renal dialysis; Z99.2 - Dependence on renal dialysis - Plan Plan: continue dialysis per nephro on epogen for anemia continue HTN meds BS well controlled, continue current medications once pt has bed/schedule available ready for DC <Reji Pollock - Last Filed: 07/14/17 10:42> (1) Chronic kidney disease, stage 5 Code(s): N18.5 - CHRONIC KIDNEY DISEASE, STAGE 5 Status: Chronic (2) Hypertension Code(s): I10 - ESSENTIAL (PRIMARY) HYPERTENSION Status: Chronic Qualifiers: Hypertension type: essential hypertension Qualified Code(s): I10 - Essential (primary) hypertension (3) Diabetes Code(s): E11.9 - TYPE 2 DIABETES MELLITUS WITHOUT COMPLICATIONS Status: Chronic Qualifiers: Diabetes mellitus type: type 2 Diabetes mellitus complication status: with kidney complications Diabetes mellitus complication detail: with chronic kidney disease Diabetes mellitus senior care insulin use: with senior care use Chronic kidney disease stage: on chronic dialysis Qualified Code(s): E11.22 - Type 2 diabetes mellitus with diabetic chronic kidney disease; N18.6 - End stage renal disease; Z99.2 - Dependence on renal dialysis; Z99.2 - Dependence on renal dialysis; Z99.2 - Dependence on renal dialysis; N18.6 - End stage renal disease; N18.6 - End stage renal disease; N18.6 - End stage renal disease ; Z79.4 - [facility] (current) use of insulin; Z79.4 - terminal superintendent (current) use of insulin; Z79.4 - [facility] (current) use of insulin; Z79.4 - terminal superintendent ( current) use of insulin; Z99.2 - Dependence on renal dialysis (4) Anemia Code(s): D64.9 - ANEMIA, UNSPECIFIED Status: Acute Qualifiers: Anemia type: due to chronic kidney disease Chronic kidney disease stage: on chronic dialysis Qualified Code(s): N18.6 - End stage renal disease; D63.1 - Anemia in chronic kidney disease; D63.1 - Anemia in chronic kidney disease; Z99.2 - Dependence on renal dialysis; Z99.2 - Dependence on renal dialysis; Z99.2 - Dependence on renal dialysis; Z99.2 - Dependence on renal dialysis <Andreea Amezcua - Last Filed: 07/17/17 14:56> Attending Addendum - Attending Addendum I personally evaluated the patient and discussed the management with Dr. Pollock on 07/14/17. I agree with the History, Examination, Assessment and Plan documented above with any addition or exceptions noted below- Patient without complaints. Receiving HD and tolerating well. Afebrile VSS. A/P: 1) End stage renal disease - continue HD as per nephrology. Awaiting arrangements for outpatient dialysis. 2) DM- BG well controlled; continue current meds. 3) HTN- improved with initiation of dialysis. Continue current meds. <Andreea Amezcua - Last Filed: 07/17/17 14:56>
[2017-07-14] MEDS: Calcium Acetate 667 MG CAP PO SCH ×3 (11:21→17:19)
[2017-07-14] MEDS: Sodium Bicarbonate Tab 325 MG TAB PO SCH ×2 (11:21→15:21)
[2017-07-14] MEDS: Heparin 5,000 UNITS/ML VIAL SC SCH ×2 (11:21→15:21)
[2017-07-14] MEDS: Insulin Detemir 100 UNITS/ML 30 UNITS in Admixture Fee 1 EACH SC SCH (11:56)
[2017-07-14] MEDS: Calcium Carbonate 500 MG ChewTAB PO SCH (11:57)
[2017-07-14] MEDS: Amlodipine 10 MG TAB PO SCH (11:58)
[2017-07-14] MEDS: Carvedilol 25 MG TAB PO SCH ×2 (11:58→17:19)
[2017-07-14] MEDS ORDERED: Polyethylene Glycol 3350 17 GM Packet PO SCH (15:15)
[2017-07-14 16:07] VITALS: BP 147/68
[2017-07-14 16:08] VITALS: TEMP 99
[2017-07-14] MEDS ORDERED: READ PPD TEST SITE PO SCH (18:00)
[2017-07-15] MEDS ORDERED: Polyethylene Glycol 3350 17 GM Packet PO SCH ×2 (09:00)
--- NOTE | 2017-07-17 14:38 | DIS-2 ---
DATE OF ADMISSION: 07/09/2017 DATE OF DISCHARGE: 07/14/2017 LOCATION: [place], [place] RESIDENT PHYSICIAN: Reji Pollock DO ADMITTING ATTENDING: Hugh Wyatt MD DISCHARGE ATTENDING: Andreea Amezcua M.D. COSIGNER: Andreea Amezcua M.D. CONSULTATIONS: 1. Nephrology, Alexandre Dunham M.D. 2. General surgery, David Maxwell M.D. PROCEDURES: 1. Acute abdominal series done on 07/09/2017 showed no radiographic evidence of acute cardiopulmonar y disease, free intraperitoneal air or small-bowel obstruction. Abdomen and pelvis CT done on 2017 showed dilatation of the right renal pelvis and ureter without evidence for a definitive calculu s. They could conceivably represent residual dilatation from a recently passed stone. Minimal dilat ation of the small bowel, some air and fluid levels, nonspecific. Minimal focal ileus or possible en teritis versus low-grade partial small-bowel obstruction or possibly even a reaction of pain related to a recently passed stone are all possibilities. Normal-appearing appendix. Small bilateral pleura l effusions slightly larger on the right and a 0.4 cm in diameter pulmonary nodule in the right middl e lobe, seen in the highest image. 2. Electrocardiogram done on 07/09/2017 showed normal sinus rhythm, prolonged QT. 3. Right IJ cuffed tunneled angio dynamics precurved hemodialysis catheter placement and left IJ jessa tral line triple lumen catheter placement under ultrasound fluoroscopy was done on 07/11/2017. 4. Chest x-ray done 07/11/2017 showed no pneumothorax post line placement. 5. On 07/12/2017 pursestring stitch was placed around the central line catheter for hemostasis. 6. On 07/12/2017, laparoscopic peritoneal dialysis catheter, double cuff pigtail laparoscopic omento pexy, left wrist Cassie fistula replaced. PRIMARY DIAGNOSES: 1. End-stage renal disease, now on dialysis. 2. Acute on chronic kidney disease, stage 5. SECONDARY DIAGNOSES: 1. Diabetes. 2. Hypertension. 3. Anemia. DISCHARGE MEDICATIONS: 1. Atorvastatin 40 mg p.o. at bedtime. 2. Amlodipine 10 mg p.o. daily. 3. Aspirin 81 mg daily. 4. PhosLo 1334 mg p.o. t.i.d. 5. Coreg 25 mg p.o. b.i.d. 6. Vitamin D3 1000 units daily. 7. MiraLax 17 grams daily. DISCONTINUED MEDICATIONS: None. HISTORY OF PRESENT ILLNESS/HOSPITAL COURSE: The patient is a 51-year-old male with a past medical hi story of type 2 diabetes that is fairly well controlled with an A1c of 5 during this admission, as we ll as longstanding hypertension and chronic kidney disease, who came in with significant worsening of his renal function, thought originally to be acute on chronic kidney disease. Unfortunately, the pa tient did not respond to IV fluids. Creatinine was trended and ultimately, Nephrology was consulted, as well as General Surgery, and the decision was made to place the patient on dialysis. The patient 's creatinine on admission was 8.24, which subsequently trended down to 5.68; however, the patient's GFR never jojo above 15. The patient is making some urine still, is not quite anuric. Hemoglobin wa s 8.4 prior to discharge and the patient will be getting Epogen or Procrit per Nephrology recommendat ions. The patient ultimately opted for peritoneal dialysis and will be in the process of getting that set u p with [facility] and Dr. Dunham in the coming weeks. DISPOSITION: The patient left the hospital in stable condition. DISCHARGE INSTRUCTIONS: 1. Location: Home. 2. Diet: Renal, high protein, heart healthy, consistent carbohydrates. 3. Activity: Ad beatriz. 4. Followup: Follow up with [facility] 07/17/2017 at 2:00 p.m. Follow up with Dr. Garth Maxwell, general surgeon, in 3-4 weeks following discharge. Follow up with [facility] primary care provider of your choosing within 7-10 days following discharge.
== END 2017-07-14 18:15 | disposition home or self-care (01) | DRG 673 ==
LOC: ERS 10:39 → T4-B 13:43 → 2NO 21:32
PROVIDERS: ADMIT Emergency Medicine; ATTEND Emergency Medicine
PROC: 02H633Z Insertion of Infusion Device into Right Atrium, Percutaneous Approach (ICD-10-PCS; 2017-07-11)
PROC: B2141ZZ Fluoroscopy of Right Heart using Low Osmolar Contrast (ICD-10-PCS; 2017-07-11)
PROC: 0WHG43Z Insertion of Infusion Device into Peritoneal Cavity, Percutaneous Endoscopic Approach (ICD-10-PCS; principal; 2017-07-12)
PROC: 031C0ZF Bypass Left Radial Artery to Lower Arm Vein, Open Approach (ICD-10-PCS; 2017-07-12)
PROC: 0DUU4JZ Supplement Omentum with Synthetic Substitute, Percutaneous Endoscopic Approach (ICD-10-PCS; 2017-07-12)
DX: I12.0 Hypertensive chronic kidney disease with stage 5 chronic kidney disease or end stage renal disease (principal); N18.6 End stage renal disease; N17.9 Acute kidney failure, unspecified; E11.22 Type 2 diabetes mellitus with diabetic chronic kidney disease; E66.01 Morbid (severe) obesity due to excess calories; E83.39 Other disorders of phosphorus metabolism; E87.2 Acidosis; I16.1 Hypertensive emergency; Z68.41 Body mass index [BMI] 40.0-44.9, adult; E83.51 Hypocalcemia; E87.5 Hyperkalemia; D63.1 Anemia in chronic kidney disease; Z79.4 Long term (current) use of insulin; Z79.82 Long term (current) use of aspirin; E78.5 Hyperlipidemia, unspecified; N13.9 Obstructive and reflux uropathy, unspecified
CPT/HCPCS: 36415; 36416; 71045; 74022; 74176; 80048; 80053; 80061; 81003; 81015; 82570; 83036; 83605; 83690; 84100; 84300; 85025; 86580; 86704; 86706; 86803; 87086; 87340; 90935; 93005; 93010; 93970; 96374; A4216; C1752; C1769; G0257; G0365; G8978-GP-CK; G8979-GP-CK; G8980-GP-CK; J0360; J1642; J1644; J1815; J1885; J2001; J2250; J2310; J2704; J2720; J3010; Q4081

== ENCOUNTER 2018-01-21 14:31 | Emergency (ER) | payer OTHER ==
[2018-01-21 15:22] LABS: #Basophils 0.1 thou/uL (0.0-0.2); #Eosinphils 0.7 thou/uL (0.0-0.7); #Lymphocytes 1.6 thou/uL (1.20-3.40); #Monocytes 0.8 thou/uL (0.11-0.59); #Neutrophils 7.5 thou/uL (1.40-6.50); %Basophils 0.7 % (0.0-1.0); %Eosinophils 6.7 % (0.0-10.0); %Lymphocytes 14.7 % (21.0-51.0); %Monocytes 7.4 % (0.0-10.0); %Neutrophils 70.6 % (42.0-75.0); Hemoglobin 10.1 g/dL (14.0-18.0); Mean Corpuscular HGB CONC 34.9 g/dL (32.0-36.0); Mean Corpuscular Hemoglobin 30.9 pg (27.0-31.0); Mean Corpuscular Volume 88.5 fL (78.0-98.0); Platelet Count 194 thou/uL (130-400); RBC Distribution Width 13.1 % (11.5-14.5); Red Blood Cell (RBC) Count 3.26 mill/uL (4.70-6.10); White Blood Cell (WBC) Count 10.6 thou/uL (4.8-10.8)
[2018-01-21] MEDS ORDERED: Fentanyl 100 MCG/2 ML VIAL ONE (15:26)
[2018-01-21 15:44] LABS: ALT (SGPT) 31 U/L (8-55); AST (SGOT) 20 U/L (5-34); Albumin 3.8 g/dL (3.5-5.0); Alkaline Phosphatase 83 U/L (40-150); Anion Gap 16 mmol/L (10-20); BUN (Urea Nitrogen) 61 mg/dL (8.4-25.7); Bilirubin, Total 0.6 mg/dL (0.2-1.2); Calc. Creatinine Clearance 0 mL/min (70-130); Calcium 8.4 mg/dL (7.8-10.44); Carbon Dioxide 22 mmol/L (22-29); Chloride 106 mmol/L (98-107); Estimated GFR-MDRD 6; Globulin 3.3 g/dL (2.4-3.5); Glucose 162 mg/dL (70-105); Potassium 5.6 mmol/L (3.5-5.1); Protein, Total 7.1 g/dL (6.0-8.3); Sodium 138 mmol/L (136-145)
[2018-01-21 15:46] LABS: CKMB 2.4 ng/mL (0-6.6)
[2018-01-21] MEDS ORDERED: HYDROmorphone 0.5 MG/0.5 ML SYRINGE ONE (16:50)
--- NOTE | 2018-01-21 17:54 | CT ---
NONCONTRAST CT ABDOMEN AND PELVIS: Date: 01-21-18 History: Abdominal pain. Comparison: 07-09-17 FINDINGS: Previously described less than 4 mm pulmonary nodule in the right middle lobe is not imaged on today' s exam. The lung bases are clear on today's examination. There has been resolution of the small bilat eral pleural effusions. There is stable mild right hydronephrosis and hydroureter. The ureter is dilated to the level of the right UVJ. Again, no calculus is visualized and the exact etiology for mild collecting system and ure teral dilatation is uncertain. There is no left hydronephrosis or hydroureter. No renal or ureteral c alculi are seen bilaterally. There are calcifications in the region of the left renal hilum probably related to vascular type calcification. The liver, spleen, pancreas, bilateral adrenal glands and incompletely distended urinary bladder demo nstrate a grossly normal nonenhanced CT appearance. Peritoneal dialysis catheter is again seen in the left lower quadrant/upper pelvis. No free fluid, fluid collection, lymphadenopathy is seen in the abdomen or pelvis. The appendix is visualized and is normal in caliber. Small bowel loops are normal in caliber. Post-surgical changes right hip are again seen. There has been no interval changed from prior exam. IMPRESSION: 1. Stable mild right hydronephrosis and hydroureter. No calculus is seen. Given persistence of this f inding, retrograde urogram may be helpful for further evaluation. 2. No renal or ureteral calculi are seen bilaterally. 3. Resolution of bilateral pleural effusions. 4. The pulmonary nodule right middle lobe seen on prior study is not imaged on today's exam. 5. No CT evidence of appendicitis. POS: [facility]
== END 2018-01-21 18:20 | disposition home or self-care (01) ==
LOC: ERS 14:31
DX: R10.30 Lower abdominal pain, unspecified (principal); E11.9 Type 2 diabetes mellitus without complications; I10 Essential (primary) hypertension; Z79.82 Long term (current) use of aspirin; Z79.899 Other long term (current) drug therapy
CPT/HCPCS: 36415; 74176; 80053; 82553; 84484; 85025; 96374; 96375; J1170; J3010

== ENCOUNTER 2018-02-27 17:52 | Emergency (ER) | payer OTHER ==
[2018-02-27 19:12] LABS: #Basophils 0.1 thou/uL (0.0-0.2); #Eosinphils 0.2 thou/uL (0.0-0.7); #Lymphocytes 1.2 thou/uL (1.20-3.40); #Monocytes 0.5 thou/uL (0.11-0.59); #Neutrophils 4.5 thou/uL (1.40-6.50); %Basophils 1.5 % (0.0-1.0); %Eosinophils 3.7 % (0.0-10.0); %Lymphocytes 18.3 % (21.0-51.0); %Monocytes 8.1 % (0.0-10.0); %Neutrophils 68.4 % (42.0-75.0); Hemoglobin 10.8 g/dL (14.0-18.0); Mean Corpuscular Hemoglobin 31.7 pg (27.0-31.0); Mean Corpuscular Volume 93.2 fL (78.0-98.0); Mean Platelet Volume 7.7 fL (7.4-10.4); Platelet Count 164 thou/uL (130-400); RBC Distribution Width 12.8 % (11.5-14.5); Red Blood Cell (RBC) Count 3.42 mill/uL (4.70-6.10); White Blood Cell (WBC) Count 6.5 thou/uL (4.8-10.8)
[2018-02-27 19:25] LABS: ALT (SGPT) 38 U/L (8-55); AST (SGOT) 33 U/L (5-34); Albumin 3.7 g/dL (3.5-5.0); Alkaline Phosphatase 78 U/L (40-150); Anion Gap 17 mmol/L (10-20); BUN (Urea Nitrogen) 69 mg/dL (8.4-25.7); Bilirubin, Total 0.4 mg/dL (0.2-1.2); Calc. Creatinine Clearance 0 mL/min (70-130); Calcium 7.8 mg/dL (7.8-10.44); Carbon Dioxide 19 mmol/L (22-29); Chloride 110 mmol/L (98-107); Estimated GFR-MDRD 7; Globulin 3.2 g/dL (2.4-3.5); Glucose 143 mg/dL (70-105); Potassium 4.3 mmol/L (3.5-5.1); Protein, Total 6.9 g/dL (6.0-8.3); Sodium 142 mmol/L (136-145)
[2018-02-27 19:29] LABS: CKMB 3.1 ng/mL (0-6.6); Troponin I Less than 0.010 ng/mL (< 0.028)
[2018-02-27 19:51] LABS: CK (CPK) 179 U/L (30-200); Lipase 102 U/L (8-78)
== END 2018-02-27 20:11 | disposition home or self-care (01) ==
LOC: ERS 17:52
DX: R55 Syncope and collapse (principal); E11.9 Type 2 diabetes mellitus without complications; I10 Essential (primary) hypertension; Z79.899 Other long term (current) drug therapy; Z79.82 Long term (current) use of aspirin
CPT/HCPCS: 36415; 36416; 80053; 82553; 83690; 84484; 85025; 93005; 94760

== ENCOUNTER 2018-06-19 17:24 | Emergency (ER) | payer OTHER ==
--- NOTE | 2018-06-19 18:25 | RAD ---
SINGLE VIEW CHEST: TWO VIEW ABDOMEN: HISTORY: Chest pain and abdominal pain when straining using the restroom. COMPARISON: None. FINDINGS: Supine and upright views of the abdomen and upright view of the chest show a nonspecific, nonobstruct lex bowel gas pattern. A peritoneal dialysis catheter is seen in the left lower quadrant of the abdo men. Air is seen throughout the colon, to the level of the rectum. No free air or air-fluid levels are seen on upright examination. The heart is normal in size. There is no evidence of consolidation, mass, or pleural effusion. IMPRESSION: Nonobstructive bowel gas pattern. POS: [facility]
== END 2018-06-19 19:33 | disposition home or self-care (01) ==
LOC: ERS 17:24
DX: K59.00 Constipation, unspecified (principal); E11.9 Type 2 diabetes mellitus without complications; I10 Essential (primary) hypertension; Z79.82 Long term (current) use of aspirin; Z79.899 Other long term (current) drug therapy
CPT/HCPCS: 74022

== ENCOUNTER 2018-09-05 12:55 | Emergency (ER) | payer BC, MEDICARE ==
[2018-09-05 13:38] LABS: Bilirubin Small (Negative); Blood, Urine Large (Negative); Clarity CLOUDY (Clear); Glucose, Urine (Dipstick) 100 mg/dL (Negative); Leukocyte Negative (Negative); Nitrite Negative (Negative); Protein, Urine (Dipstick) 100 mg/dL (Neg-Trace); Specific Gravity, Urine 1.015 (1.002-1.036); Urobilinogen 0.2 mg/dL (0.2-1.0)
[2018-09-05 13:41] LABS: Hyaline Casts/LPF 7-10 HYALINE CAST LPF (0-3 Hyaline); Pathc Cast-AUWi Flag 2.17 (0-2.49); RBC/HPF GREATER THAN 50-TNTC HPF (0-3); Yeast-AUWi Flag 348.6 (0-25.0)
[2018-09-05 13:44] LABS: #Eosinphils 0.4 thou/uL (0.0-0.7); #Lymphocytes 1.2 thou/uL (1.20-3.40); #Monocytes 0.6 thou/uL (0.11-0.59); #Neutrophils 6.4 thou/uL (1.40-6.50); %Basophils 0.5 % (0.0-1.0); %Eosinophils 4.8 % (0.0-10.0); %Monocytes 7.4 % (0.0-10.0); %Neutrophils 73.4 % (42.0-75.0); Hemoglobin 10.7 g/dL (14.0-18.0); Mean Corpuscular HGB CONC 33.1 g/dL (32.0-36.0); Mean Corpuscular Hemoglobin 30.9 pg (27.0-31.0); Mean Corpuscular Volume 93.4 fL (78.0-98.0); Mean Platelet Volume 7.8 fL (7.4-10.4); Platelet Count 183 thou/uL (130-400); RBC Distribution Width 12.8 % (11.5-14.5); Red Blood Cell (RBC) Count 3.46 mill/uL (4.70-6.10); White Blood Cell (WBC) Count 8.7 thou/uL (4.8-10.8)
[2018-09-05 13:54] LABS: Bacteria/HPF 2+ HPF (None Seen); Renal Epithelial None Seen HPF (0-3); Transitional Epithelial NONE SEEN HPF (0-3); Yeast-All Forms None Seen HPF (None Seen)
[2018-09-05 14:07] LABS: ALT (SGPT) 66 U/L (8-55); AST (SGOT) 39 U/L (5-34); Albumin 3.8 g/dL (3.5-5.0); Alkaline Phosphatase 99 U/L (40-150); Anion Gap 20 mmol/L (10-20); BUN (Urea Nitrogen) 71 mg/dL (8.4-25.7); Bilirubin, Total 0.6 mg/dL (0.2-1.2); Calc. Creatinine Clearance 0 mL/min (70-130); Calcium 8.6 mg/dL (7.8-10.44); Carbon Dioxide 21 mmol/L (22-29); Chloride 103 mmol/L (98-107); Estimated GFR-MDRD 3; Globulin 3.3 g/dL (2.4-3.5); Glucose 165 mg/dL (70-105); Lipase 73 U/L (8-78); Potassium 4.6 mmol/L (3.5-5.1); Protein, Total 7.1 g/dL (6.0-8.3); Sodium 139 mmol/L (136-145)
--- NOTE | 2018-09-08 12:03 | EKG ---
Test Reason : Blood Pressure : / mmHG Vent. Rate : 059 BPM Atrial Rate : 059 BPM P-R Int : 260 ms QRS Dur : 096 ms QT Int : 472 ms P-R-T Axes : 020 039 060 degrees QTc Int : 467 ms Sinus bradycardia with 1st degree A-V block Otherwise normal ECG Confirmed by BARAK PANTOJA DO ([id number]), video tape editor DIMITRIS MORALES ([id number]) on 09/08/2018 12:03:11 PM Referred By: Confirmed By:BARAK PANTOJA DO
== END 2018-09-05 15:18 | disposition home or self-care (01) ==
LOC: ERS 12:55
DX: N39.0 Urinary tract infection, site not specified (principal); E11.9 Type 2 diabetes mellitus without complications; I10 Essential (primary) hypertension; Z79.899 Other long term (current) drug therapy; Z79.82 Long term (current) use of aspirin
CPT/HCPCS: 36415; 80053; 81003; 81015; 83690; 85025; 93005

== ENCOUNTER 2019-01-14 09:40 | Day surgery (SDC) | payer MEDICARE ==
--- NOTE | 2019-01-10 13:57 | HP ---
HISTORY OF PRESENT ILLNESS: Carito Silva is a 53-year-old male. The patient dialyzes [facility] Monday, Monday, and Monday. He has a PD catheter that is mechanically functioning well, but he is not obtaining adequate clearances during dialysis. He has a functioning Cassie fistula, left arm. I have been asked to see him regarding removal of his PD catheter. We will plan removal of that under IV sedation with local as an outpatient. He dialyzes Monday, Monday, and Monday at 0500 hours at [facility] and completes his dialysis approximately 9 a.m. We could do this on Monday, Monday, and Monday later in the morning or Monday afternoon on a nondialysis day. ALLERGIES: NONE. HOME MEDICATIONS: 1. MiraLAX. 2. Carvedilol. 3. Calcium. 4. Atorvastatin. 5. Aspirin. 6. Amlodipine. 7. Insulin. PAST MEDICAL HISTORY: Insulin-dependent diabetes mellitus; hypertension; end-stage renal disease, on maintenance dialysis, followed by Dr. Alexandre Dunham; and hypertension. PAST SURGICAL HISTORY: Right femur ORIF; right and left hip ORIF; right knee ORIF from [facility]; dialysis access in June 2017 as outlined above; laparoscopic PD catheter; left Cassie fistula; and hemodialysis catheter which was subsequently removed. PHYSICAL EXAMINATION: VITAL SIGNS: 219 pounds, 66 inches, 35 BMI, blood pressure 143/68, pulse 69, and temperature 98.8 degrees. HEAD, EARS, EYES, NOSE AND THROAT: Unremarkable. LUNGS: Clear to auscultation. CARDIAC: Regular rate and rhythm without murmur or gallop. ABDOMEN: Soft, obese. PD catheter exiting left lower quadrant. EXTREMITIES: Unremarkable. Left Cassie fistula, good thrill and bruit. ASSESSMENT AND PLAN: Functioning left Cassie fistula on dialysis Monday, Monday, and Monday at [facility] from 0500 hours to 0900 hours, now transitioning to hemodialysis due to inadequate clearances with peritoneal dialysis. We will plan removal of peritoneal dialysis catheter and IV sedation with local as an outpatient. He understands the risks and benefits and consents. Job ID: [id number]
[2019-01-11 12:29] VITALS: BMI 34.7
[2019-01-14 10:42] LABS: #Basophils 0.1 thou/uL (0.0-0.2); #Eosinphils 0.6 thou/uL (0.0-0.7); #Monocytes 0.7 thou/uL (0.11-0.59); #Neutrophils 4.9 thou/uL (1.40-6.50); %Basophils 1.6 % (0.0-1.0); %Eosinophils 7.4 % (0.0-10.0); %Lymphocytes 23.9 % (21.0-51.0); %Monocytes 8.4 % (0.0-10.0); %Neutrophils 58.7 % (42.0-75.0); Hemoglobin 13.1 g/dL (14.0-18.0); Mean Corpuscular HGB CONC 32.7 g/dL (32.0-36.0); Mean Corpuscular Hemoglobin 30.9 pg (27.0-31.0); Mean Corpuscular Volume 94.7 fL (78.0-98.0); Mean Platelet Volume 8.2 fL (7.4-10.4); Platelet Count 204 thou/uL (130-400); Red Blood Cell (RBC) Count 4.25 mill/uL (4.70-6.10); White Blood Cell (WBC) Count 8.3 thou/uL (4.8-10.8)
[2019-01-14 10:54] LABS: Anion Gap 16 mmol/L (10-20); BUN (Urea Nitrogen) 24 mg/dL (8.4-25.7); Calc. Creatinine Clearance 17 mL/min (70-130); Calcium 9.7 mg/dL (7.8-10.44); Carbon Dioxide 29 mmol/L (22-29); Chloride 97 mmol/L (98-107); Estimated GFR-MDRD 8; Glucose 156 mg/dL (70-105); Potassium 4.4 mmol/L (3.5-5.1); Sodium 138 mmol/L (136-145)
[2019-01-14] MEDS ORDERED: Famotidine/PF 20 mg/2ml Vial ONE (10:58)
[2019-01-14] MEDS ORDERED: Midazolam HCl 2 mg/2 ml Vial ONE (10:58)
[2019-01-14] MEDS ORDERED: Fentanyl 100 MCG/2 ML VIAL ONE (10:58)
[2019-01-14] MEDS ORDERED: Lidocaine 2% PF 5 ML VIAL ONE (11:01)
[2019-01-14] MEDS ORDERED: Bupivacaine/Epinephrine 0.25% 30 ML VIAL ONE (11:01)
[2019-01-14] MEDS ORDERED: Ondansetron PF 4 MG/2 ML Vial ONE (11:08)
--- NOTE | 2019-01-14 12:18 | OP ---
DATE OF PROCEDURE: 01/14/2019 PREOPERATIVE DIAGNOSES: End-stage renal disease, functioning left arm fistula, undesired peritoneal dialysis catheter. POSTOPERATIVE DIAGNOSES: End-stage renal disease, functioning left arm fistula, undesired peritoneal dialysis catheter. PROCEDURE PERFORMED: Removal of peritoneal dialysis catheter, double cuffed pigtail. ANESTHESIA: TIVA, local with 0.25% Marcaine with epinephrine, 60 mL mixed with 2% Xylocaine 10 mL, a 30 mL volume mixture used. DESCRIPTION OF PROCEDURE: The patient was taken to the operating room, where under intravenous sedation, abdomen was clipped of hair, prepared with ChloraPrep and draped in routine fashion. Local anesthetic was infiltrated in the skin and subcutaneous tissue about the operative site. Double cuffed pigtail peritoneal dialysis catheter removed by blunt dissection. Placement of gauze dressing at exit site. There was no bleeding. The patient tolerated the procedure well. Job ID: [id number]
== END 2019-01-14 12:40 | disposition home or self-care (01) ==
LOC: SDC 09:40
PROVIDERS: ATTEND Specialist
PROC: 0WPG33Z Removal of Infusion Device from Peritoneal Cavity, Percutaneous Approach (ICD-10-PCS; principal; 2019-01-14)
DX: Z45.2 Encounter for adjustment and management of vascular access device (principal); I12.0 Hypertensive chronic kidney disease with stage 5 chronic kidney disease or end stage renal disease; E11.22 Type 2 diabetes mellitus with diabetic chronic kidney disease; N18.6 End stage renal disease; Z79.4 Long term (current) use of insulin; Z79.82 Long term (current) use of aspirin; Z79.899 Other long term (current) drug therapy; Z99.2 Dependence on renal dialysis; Z98.890 Other specified postprocedural states
CPT/HCPCS: 80048; 85025; 93005; 93010; J0131; J0690; J2001; J2250; J2405; J3010; S0028